=== PATIENT | female | born 1940 | race Caucasian/White ===

== ENCOUNTER 2016-09-15 16:40 | Inpatient (IN) | payer MEDICARE, OTHER ==
[~2016-09-15] VITALS: Ht 162.6 cm; Wt 58.0 kg
[2016-09-15 16:48] VITALS: BP 159/66; PULSE 68; RESP 16; O2SAT 100
--- NOTE | 2016-09-15 16:56 | ED.REPORT ---
HPI-Abd Pain F 40 and Over Date of Service September 15, 2016 ED Provider: Dr. Chan 76 y/o female with a hx of ulcerative colitis presents to the ED via EMS complaining of right quadrant abdominal pain, onset two weeks ago. She rates the pain 9.5/10 in severity. The pt reports she experienced bloody diarrhea and vomiting two weeks ago which resolved temporarily. The sx returned last week at which point she took Prednisone, which resolved all her sx. Today, the abdominal pain returned. She also had mild diarrhea and one episode of vomiting , after she ate a piece of toast today. She states her last normal BM was 4 days ago.She also reports chills and shaking but denies fever. Her sx are similar to the sx she experienced when she had colitis but reports that unlike today, her abdominal pain used to improve with a heating pad or lying down. The pt denies taking any Prednisone today. Nursing Notes Stated Complaint: ABD PAIN Chief Complaint: Female Abdominal Pain Nursing Notes Reviewed: Yes (Pollen - Social Platform, Win Win Slots not reconciled) Allergies: Coded Allergies: Sulfa (Sulfonamide Antibiotics) (Verified Allergy, Mild, nauesa, 09/15/16) Penicillins (Verified Allergy, Unknown, not sure, 09/15/16) General Time Seen by MD: 16:55 Chief Complaint Abdominal pain Hx Obtained From: Patient Arrived By: Helicopter Sudden in Onset?: No Onset Occurred: More than a week ago... 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 Neurologic: Reports: Shaking Physical Exam Vital Signs Vital Signs (First) Date Time Temp Pulse Resp B/P Pulse Ox O2 Delivery O2 Flow Rate FiO2 09/15/16 16:48 37.1 68 16 159/66 100 Room Air Initial VS: Reviewed, Unavailable (none on chart, ordered) Head / Eyes: Atraumatic, Normocephalic, PERRL Neck: Supple, Non-tender, Full range of motion Extremities: Vascular intact, Neuro intact, No swelling, No tenderness Skin: Warm, Dry, No cyanosis Neurologic: Alert, Oriented, Nonfocal General/Constitutional: Awake, Alert, Well appearing, Cooperative Respiratory / Chest: Atraumatic, Breath sounds NL, Breath sounds = bilat, No respiratory distress, No rales, No rhonchi, No wheezing Cardiovascular: Heart rate NL, Regular rhythm, Heart sounds NL, No gallop, No murmurs Abdomen: Atraumatic, Soft, Non-tender, No guarding, No rebound Back: Atraumatic, Full range of motion Interpretation & Diagnostics Lab Results Interpretation Result Diagram: 09/15/16 1700 Test 09/15/16 17:00 White Blood Count 12.3th/mm3 (3.8-10.1) Red Blood Count 4.84mil/mm3 (3.90-5.20) Hemoglobin 11.5g/dL (12.0-15.6) Hematocrit 35.1% (35.0-46.0) Mean Corpuscular Volume 72.5fL (81-100) Mean Corpuscular Hemoglobin 23.8pg (27.0-35.0) Mean Corpuscular Hemoglobin Concent 32.8% (32.0-37.0) Red Cell Distribution Width 16.6% (12.3-15.4) Platelet Count 450bil/L (150-400) Neutrophils (%) (Auto) 75.7% (40-74) Lymphocytes (%) (Auto) 7.2% (14-46) Monocytes (%) (Auto) 12.6% (4-12) Eosinophils (%) (Auto) 0.6% (0-5) Basophils (%) (Auto) 0.2% (0-3) Lab Results Interpretation: CBC positive leukocytosis Other labs pending ECG Interpretation ECG Interpretation: Normal sinus rhythm a rate of 62, borderline left ventricular hypertrophy-no prior EKGs available for comparison. No acute ischemic changes identified. Time: 17:44 Interpreted by: ED physician Re-Eval/Medical Decision Med Decision/Clinical Course This is a 76-year-old female airlifted from the [place] on a complaint of abdominal pain, and diarrhea. Patient reports that 5-6 years ago she was admitted to [facility] and diagnosed with ulcerative colitis. Also over the past 2 weeks that she has had pain, intermittent bleeding, and saw her primary care physician Dr. Chan and started on a prednisone course on Tuesday. Reports the bleeding of the diarrhea improved, but she continued to have some pain. Then today symptoms got worse and she had worsening pain, then developed nausea vomiting-and with his worsening airlift was contacted and she was flown here. A significant and severe pain. She reports a vague sense of chills, but is not certain about fever. On exam she does not appear acutely toxic or ill. She feels her mild discomfort. Her abdomen is soft and not particular tender-but again the patient 76 non-steroids, getting her abdominal exam. He denies recent antibiotic exposure history. She reports she is generally healthy and the only other medicine she takes is when necessary ibuprofen for some chronic abdominal pain. Plan workup is being pursued. Labs are being obtained, given the severity of the abdominal pain CT imaging is being obtained-and radiology as indicated they would like to receive oral contrast. I have also attempted to request records from [facility] from years ago from the last colonoscopy and GI evaluation she has had. Patient is being turned over to the oncoming provider change of shift. At this point the most likely diagnosis does remain a variant of colitis-to whether or not it is infectious, inflammatory of an ischemic remains a bit unclear. As indicated the workup is underway. Source of Hx: Old records (none in EMR), EMS Counseled Regarding: Diagnosis, Lab results Discharge & Departure Shift Change Sign-Out Patient Care Transferred: Yes Discussed Complaint(s): Yes Laboratory Evaluation: Ordered, not yet done Imaging Studies: Ordered, not yet done Primary Impression: Colitis Discharge Condition All VS Reviewed: Yes Care Transferred to: Dr. Peace Care Transferred at: 18:00 Scribe Attestation Portions of this note were transcribed by Jermaine Lux. I, , personally performed the history, physical exam and medical decision-making;I reviewed and confirmed the accuracy of the information in the transcribed note. Signed by Deven García. 09/15/16 1737 Wil Chan MD September 15, 2016 16:56 Jermaine Lux September 15, 2016 17:04
[2016-09-15] MEDS ORDERED: 0.9% Sodium Chloride 1,000 ML IV ONE (17:08)
[2016-09-15] MEDS ORDERED: HYDROmorphone 0.5 mg/0.5 mL iSecure Syringe IVPUSH PRN (17:10)
[2016-09-15] MEDS ORDERED: Ondansetron 2 mg/mL 2 mL Inj IVPUSH ONE (17:10)
[2016-09-15] MEDS: HYDROmorphone 1 mg/mL Inj IVPUSH PRN ×3 (17:30→21:52)
[2016-09-15 17:35] LABS: BASOPHILS % (AUTO) 0.2 % (0-3)
[2016-09-15 17:37] LABS: EOSINOPHILS % (AUTO) 0.6 % (0-5); MONOCYTES % (AUTO) 12.6 % (4-12); Mean Corpuscular Hemoglobin 23.8 pg (27.0-35.0); Mean Corpuscular Volume 72.5 fL (81-100); NEUTROPHILS % (AUTO) 75.7 % (40-74); Platelet Count 450 bil/L (150-400)
[2016-09-15] MEDS ORDERED: Iohexol 300 mg/mL 30 mL Inj PO ONE (17:45)
[2016-09-15 18:00] LABS: TROPONIN T < 0.010 ug/L (0.0-0.011)
[2016-09-15] MEDS ORDERED: ProchlorPERazine 5 mg/mL 2 mL Inj IVPUSH ONE (18:05)
[2016-09-15 18:07] LABS: Lipase 29 U/L (13-60)
[2016-09-15 18:08] LABS: APPEARANCE,URINE CLEAR (CLEAR,HAZY); COLOR,URINE STRAW (YELLOW); OCCULT BLOOD,URINE TRACE (NEGATIVE); UROBILINOGEN,URINE NORMAL (NORMAL)
[2016-09-15 19:30] VITALS: BP 129/57; PULSE 66; RESP 13; O2SAT 97
--- NOTE | 2016-09-15 19:44 | DRSVH ---
PROCEDURE: CT ABDOMEN AND PELVIS WITH CONTRAST ([id number]) INDICATIONS: Abd pain, ho colitis TECHNIQUE: After the administration of oral and intravenous contrast, 5 mm thick sections acquired from the diap hragms to the symphysis. 5 mm thick coronal and sagittal reformats were performed. For radiation do se reduction, the following was used: automated exposure control, adjustment of mA and/or kV accordi ng to patient size. COMPARISON: None. FINDINGS: Image quality: Excellent. ABDOMEN: Lung bases: Lung bases are clear. Heart size is normal. Solid organs: Benign left lobe of the liver hepatic cysts. Otherwise the liver is normal. The gallbla dder, pancreas, spleen, adrenal glands and left kidney are normal. There is a 14 x 10 mm proximal rig ht ureteral calculus causing right hydronephrosis and ureterectasis. Several smaller nonobstructing r ight-sided renal calculi. Benign right renal cyst.. Peritoneum and bowel: Stomach, small bowel, and colon loops are normal in caliber and wall thickness . No free fluid or air. Nodes and vessels: No retroperitoneal or mesenteric adenopathy. Aorta and inferior vena cava are no rmal in caliber. Miscellaneous: No ventral hernias. PELVIS: Genitourinary: Bladder wall thickness is normal. Miscellaneous: No inguinal hernias or adenopathy. Bones: Osteopenia. Advanced degenerative changes in both hips. Right hip effusion. IMPRESSION: 1. Obstructing 14 x 10 mm proximal right ureteral calculus with right-sided hydronephrosis. Several s maller nonobstructing right renal calculi are also present. 2. Severe bilateral hip degenerative change. Right hip effusion. Dictated by: Tristin Fiore M.D. on 09/15/2016 at 19:31 Approved by: Tristin Fiore M.D. on 09/15/2016 at 19:37
[2016-09-15] MEDS ORDERED: IBUP200C PO (21:08)
[2016-09-15] MEDS ORDERED: Alum-Mag Hydrox-Simeth 30 mL Suspension PO PRN (21:30)
[2016-09-15] MEDS ORDERED: Polyethylene Glycol (PEG) 17 Gm Powder PO PRN (21:30)
[2016-09-15] MEDS ORDERED: Ondansetron 2 mg/mL 2 mL Inj IVPUSH PRN (21:30)
[2016-09-15 21:36] VITALS: BP 109/46; PULSE 56; RESP 14; O2SAT 95
[2016-09-15] MEDS ORDERED: KCl 40 mEq/D5W 500 mL 40 MEQ in IV Premix 1 EACH IV ONE (22:00)
[2016-09-15 22:01] VITALS: BP 130/74; PULSE 79; RESP 16; O2SAT 97
[2016-09-15] MEDS: 0.9% Sodium Chloride 1,000 ML IV SCH (22:38)
--- NOTE | 2016-09-15 22:46 | PCM.HPMED ---
Subjective Date of Service September 15, 2016 Primary Provider: Admitting Physician: Primary Care Physician: Lio Chan MD Attending Physician: Admit Status: From the Emergency Department Chief Complaint: Abdominal pain History of Present Illness: 76 y/o female with a hx of ulcerative colitis presents to the ED via EMS ( helicopter from [place]) complaining of right quadrant abdominal pain, onset two weeks ago. She rates the pain 9.5/10 in severity. The pt reports she experienced bloody diarrhea and vomiting two weeks ago which resolved temporarily. The sx returned last week at which point she started taking Prednisone, which resolved all her sx. Today, the abdominal pain returned. Patient states the pain is deep on the right side between her abdomen and back. Patient reports of frequent bowel movements with the past 3, 4 days being constipated. Denies any diarrhea or blood in her stools. One episode of vomiting, after she ate a piece of toast today. She also reports chills with shakes, but denies fever. Patient reports her old fluoride of colitis pain is usually improved by heating pad or lying down, but this new onset of abdominal pain has been different. In the ED vitals temperature 37.1 pulse 68 respiratory 16 blood pressure 159/66 pulse ox 100% on room air. Labs significant for WBC 12.3 with 75.7% neutrophils. Patient was found to have right hydronephrosis confirmed by CT abd showed "1. Obstructing 14 x 10 mm proximal right ureteral calculus with right-sided hydronephrosis. Several smaller nonobstructing right renal calculi are also present. 2. Severe bilateral hip degenerative change. Right hip effusion." Dr. Silva of neurology was consulted, Dr. Silva to see patient in a.m. Review of Systems: Constitutional: Endorses chills denies fever GI: RUQ Abdominal pain, Diarrhea (Bloody, resolved after prednisone), Nausea, Vomiting A comprehensive review of systems has been conducted as above with the patient and found to be negative except what is mentioned in the HPI. 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 requiring some sort of neurosurgery History of scoliosis Surgical History Right Thumb Facial surgery (for traumatic injury) Patient reports last colonoscopy 5-6 years ago at [facility] were ulcerative colitis diagnosis was allegedly made (reported 08/2016) Reports: Appendectomy Family History Father with heart condition Mother of bowel perforation in her 80s Social History Hx Alcohol Use: Yes ("very seldom") Hx Substance Use: No Hx Tobacco Use: No Smoking Status: Never Smoker Living Arrangement: Alone (on [facility]) Exam Vital Signs Vital Sign - Last Date Time Temp Pulse Resp B/P Pulse Ox O2 Delivery O2 Flow Rate FiO2 09/15/16 19:30 66 13 129/57 97 Room Air 09/15/16 16:48 37.1 Exam GEN: Awake, Alert, no acute distress, Cooperative HEENT: Atraumatic, Normocephalic, PERRL, EOMI, moist mucous membranes Neck: Supple, Non-tender, Full range of motion CV: Heart rate NL, Regular rhythm, Heart sounds NL, No gallop, No murmurs, radial and dorsal pedis pulses normal Resp: CTAB with Breath sounds NL, Breath sounds = bilat, No respiratory distress, No rales, No rhonchi, No wheezing Abdomen: Atraumatic, Soft, Non-tender, No guarding, No rebound, no organomegaly Back: Atraumatic, Full range of motion, CVA tenderness on right Extremities: Vascular intact, Neuro intact, No swelling, No tenderness Skin: Warm, Dry, No cyanosis Neurologic: Alert, Oriented, Nonfocal Lab and Diagnostics Result Diagram: 09/15/16169909/15/161699 X-Rays, CTs and MRIs Date of Service: 09/15/161707 PROCEDURE: CT ABDOMEN AND PELVIS WITH CONTRAST ([id number]) INDICATIONS: Abd pain, ho colitis IMPRESSION: 1. Obstructing 14 x 10 mm proximal right ureteral calculus with right-sided hydronephrosis. Several smaller nonobstructing right renal calculi are also present. 2. Severe bilateral hip degenerative change. Right hip effusion. Dictated by: Tristin Fiore M.D. on 09/15/2016 at 19:31 Approved by: Tristin Fiore M.D. on 09/15/2016 at 19:37 Assessment & Plan Patient is a 76 y/o female with a hx of ulcerative colitis presents to the ED via EMS complaining of RUQ abdominal pain, onset two weeks ago. Symptoms of bloody diarrhea and vomiting were temporarily resolved with prednisone. Abdominal pain returned today, with associated symptoms of one episode of vomiting. Patient was found to have right hydronephrosis confirmed by CT abdomen. Right hydronephrosis due to right ureteral calculus, present on admission. Acute - NPO after midnight for possible procedure tomorrow - IV fluids continued - No antibiotics needed tonight but may be indicated prior to procedure tomorrow , Urology to decide - Dr. Silva of urology to see patient in a.m. with plans for stenting Abdominal pain, present on admission. Acute. Resolved. - Patient's abdominal pain most likely due to hydronephrosis, since patient's ulcerative colitis significantly improved upon taking prednisone with no further episodes of bloody diarrhea Ulcerative colitis, present on admission. Stable - Patient was on mesalamine that has recently been taken herself off of it, being very careful with her diet, taking ibuprofen for flares - Patient's abdominal pain most likely due to hydronephrosis, since there has been no blood with her stools, and patient reporting of different quality of pain untouched by usual comforting remedies Hx of TBI Hx of kidney stones Acetaminophen-fever/headache/mild/moderate pain Antiemetics, as needed Bowel regimen, as needed. Patient status: Patient was admitted under inpatient status with expected length of stay greater than two midnights due to severity of presenting symptoms , risk of adverse event, and complexity of treatment plan. GI Prophylaxis: Not indicated VTE Prophylaxis: Sub-Q Heparin (Unfractionated) Resuscitation Status: DNR/DNI:Do Not Resuscitate/Intubate Attending Statement The patient was seen and examined together with Dr. Colby on 09/14 and I agree with the history, exam and plan as outlined in the note above. Corey Colby DO September 15, 2016 21:30 Isauro Ding MD September 16, 2016 00:49
[2016-09-16] VITALS (11 sets, daily range): BP systolic 102–142; BP diastolic 57–78; PULSE 66–86; RESP 12–18; O2SAT 94–98
[2016-09-16] MEDS: Heparin 5,000 Unit/mL Inj SUBQ SCH ×3 (00:32→16:54)
[2016-09-16] MEDS: HYDROmorphone 0.5 mg/0.5 mL iSecure Syringe IVPUSH PRN ×2 (00:37→03:38)
[2016-09-16 06:55] LABS: BASOPHILS % (AUTO) 0.3 % (0-3); EOSINOPHILS % (AUTO) 0.4 % (0-5); MONOCYTES % (AUTO) 14.1 % (4-12); Mean Corpuscular Hemoglobin 23.8 pg (27.0-35.0); Mean Corpuscular Volume 73.8 fL (81-100); Platelet Count 394 bil/L (150-400)
--- NOTE | 2016-09-16 09:12 | PCM.HPANE ---
Patient Data Surgeon Admitting Provider:Isauro Ding MD Attending Provider:Isauro Ding MD Primary Care Physician:Lio Chan MD Other Provider: Reason for Visit Obst,Uropathy W/Stone,Ulcerative Colits Ht/WT & BMI Height (Feet): 5 Height (Inches): 4.00 Weight (Kilograms): 58.000 Body Mass Index 21.83 Allergies Coded Allergies: Sulfa (Sulfonamide Antibiotics) (Verified Allergy, Mild, nauesa, 09/15/16) Penicillins (Verified Allergy, Unknown, not sure, 09/15/16) Past Anesthesia History Anesthesia History: Denies:: Abnormal Airway, Anesthesia Reactions, Difficult Intubation, Fam Anesthesia Reaction, Fam Malignant Hypertherm, Malignant Hyperthermia Diabetes History Hx Diabetes?: No MRSA MRSA: No Medications Reported Medications Ibuprofen 200 Mg Capsule3-4 Capsule PO TID PRN For Pain 09/15/16 History History of ENT Problems?: Yes HEENT History: Denies:: Abnormal Airway Cataracts Difficult Intubation Dysphagia Glaucoma Hearing Problem Sinus Problem TMJ Denture Type: None Teeth Condition: Within Normal Limits Other HEENT Pertinent History: hx of facial surgery secondary to traumatic injury Hx of Heart Problems?: No Cardiovascular History: Denies:: AICD Abdominal Aortic Aneurism Atrial Fibrillation Cardiac Surgery Chest Pain Congestive Heart Failure Coronary Artery Disease Edema Heart Murmur Hypertension Irregular Heartbeat Pacemaker Peripheral Vascular Rheumatic Fever Thrombophlebitis Valvular Heart Disease Hx of Respiratory Problem?: No Respiratory History: Denies:: Asthma COPD Chest Surgery Cough Dyspnea Emphysema Hemoptysis Oxygen Administration Pneumonia Pulmonary Embolism Tuberculosis Use of C-PAP Machine Use of Inhalers / NEBS Hx Neurologic Problems?: No Hx of GI Problems?: Yes Other GI Pertinent History: ulcerative colitis s/p appy Hx of Problems?: Yes Genitourinary History: Positive for:: Kidney Stones (current, see below) Other Pertinent History: obstructing rt.ureteral calculus with rt-sided hydronephrosis Female Hx: Denies:: Currently Endometriosis Pelvic Inflammatory Problems with Breasts? Hx Musculoskeletal Problems?: Yes Musculoskeletal History: Positive for:: Back Injury (spinal stenosis, hx scoliosis) Musculoskeletal Trauma (traumatic brain injury and cervical injury from a fall in 1991) Denies:: Joint Replacement Hx of Psycho/Social Problems?: No Hx Surgeries?: Yes (neurosurgery, rt.thumb, facial sry, appendectomy, colonoscopy) Hx Any Other Health Problems?: Yes Other History: Positive for:: Hospitalization Denies:: Cancer Thyroid Disease History Blood Transfusions: Positive for:: Accept Blood Products? Blood Transfusions (some "blood product") Hx Diabetes: No Hx Alcohol Use: Yes ("very seldom")Hx Substance Use: No Smoking Status: Never Smoker Have You Smoked inLast 12 mo: YesApprox How Many Cigarettes/day: 5-6 cig/day Stop/Bang Treated for Sleep Apnea?: No Do You Have a CPAP Machine?: No S-Snoring: Do You Snore Loudly: No T-Tired: feel tired, fatigued: No O-Obsered: Observed not breath: No P-Blood Pressure: treated: No B- Body Mass Index > 35 kg/m2: No A- Age over 50: Yes N- Neck Large Circumference: No G- Gender Male: No SMITH Total Score: 0 Risk Assessment Category Category 1A: Patient has history of documented sleep apnea, and HAS NOT received any narcotic, sedative or anesthesia administration during this stay. Category 1B: Patient has history of documented sleep apnea, and HAS received any narcotic , sedative or anesthesia administration during this stay Category 2: Patient has SUSPECTED Obstructive Sleep Apnea, and HAS received any narcotic , sedative or anesthesia administration during this stay. Category 3: Patient has SUSPECTED Obstructive Sleep Apnea and HAS NOT received narcotic, sedative or anesthesia administration during this stay. Category 4: Outpatient in Procedural Areas with known sleep apnea or who screen positive for High Risk via the STOP/BANG questionnaire. Exam Exam Vital Signs Vital Signs Date Time Temp Pulse Resp B/P Pulse Ox O2 Delivery O2 Flow Rate FiO2 09/16/16 05:15 36.4 68 16 142/68 97 Room Air 09/16/16 01:16 36.8 82 16 126/78 96 Room Air General Appearance: Alert, Oriented X3, Cooperative HEENT/AIRWAY: MP 2, Neck Movement (from), Mouth Opening (wnl) Lungs: Clear to Auscultation Heart: Exam Unremarkable Meds/Labs/Diagnostics Admission Meds Current Medications Sodium Chloride (Normal Saline) 1,000 ml @ 0 mls/hr Q0M ONCE IV Last administered on 09/15/16t 17:52; Start 09/15/16 at 17:08; Stop 09/15/16 at 17:10 ; Status DC Ondansetron HCl (Zofran Inj) 8 mg ONCE ONCE IVPUSH Last administered on 17:25; Start 09/15/16 at 17:10; Stop 09/15/16 at 17:11; Status DC Iohexol (Omnipaque-300 Inj) 9,000 mg ONCE ONCE PO Last administered on 18:08; Start 09/15/16 at 17:45; Stop 09/15/16 at 17:47; Status DC Heparin Sodium (Porcine) 5000 unit 5,000 unit Q8 SUBQ Last administered on 09/16 00:32; Start 09/16/16 at 00:30 Potassium Chloride In D5W 40 meq/Premix 500 ml @ 125 mls/hr Q4H ONCE IV Last administered on 09/15/16 22:37; Start 09/15/16 at 22:00; Stop 09/16/16 at 01:59 ; Status DC Sodium Chloride (Normal Saline) 1,000 ml @ 100 mls/hr Q10H IV Last administered on 09/15/16 22:38; Start 09/15/16 at 22:30 Labs Test 09/15/16 17:00 09/15/16 17:49 09/16/16 06:37 Lactic Acid Level 0.9mmol/L (0.4-2.0) Magnesium Level 2.0mg/dL (1.6-2.6) Total Bilirubin 0.4mg/dL (0.0-1.2) Aspartate Amino Transf (AST/SGOT) 21U/L (0-50) Alanine Aminotransferase (ALT/SGPT) 28U/L (0-32) Alkaline Phosphatase 112U/L (25-165) Troponin T < 0.010ug/L (0.0-0.011) Total Protein 6.4g/dL (6.4-8.4) Albumin 3.3g/dL (3.4-5.0) Lipase 29U/L (13-60) Urine Color Straw (YELLOW) Urine Appearance Clear (CLEAR,HAZY) Urine pH 7.0 (5.0-8.0) Urine Specific [place] 1.010 (1.003-1.035) Urine Protein Negativemg/dL (NEG,TRACE) Urine Glucose (UA) Negativemg/dL (NEGATIVE) Urine Ketones Negativemg/dL (NEGATIVE) Urine Occult Blood Trace (NEGATIVE) Urine Nitrite Negative (NEGATIVE) Urine Bilirubin Negative (NEGATIVE) Urine Urobilinogen Normalmg/dL (NORMAL) Urine Leukocyte Esterase Moderate (NEGATIVE) Urine RBC 0-2/hpf (0-2) Urine WBC 6-10/hpf (0-5) Urine Epithelial Cells Occasional/hpf (NONE-MOD) Urine Crystals None seen (NONE SEEN) Urine Bacteria None/hpf (NONE-FEW) Urine Hyaline Casts None/lpf (NONE) Urine Granular Casts None seen (NONE SEEN) Urine Waxy Casts None seen (NONE SEEN) Urine Red Blood Cell Casts None seen (NONE SEEN) Urine White Blood Cell Casts None seen (NONE SEEN) Urine Mucus None seen (None Seen) Urine Trichomonas None seen (NONE SEEN) Urine Yeast None (NONE SEEN) Urinalysis Comment None Urine Culture Reflexed Indicated White Blood Count 7.9th/mm3 (3.8-10.1) Red Blood Count 4.50mil/mm3 (3.90-5.20) Hemoglobin 10.7g/dL (12.0-15.6) Hematocrit 33.2% (35.0-46.0) Mean Corpuscular Volume 73.8fL (81-100) Mean Corpuscular Hemoglobin 23.8pg (27.0-35.0) Mean Corpuscular Hemoglobin Concent 32.2% (32.0-37.0) Red Cell Distribution Width 16.9% (12.3-15.4) Platelet Count 394bil/L (150-400) Neutrophils (%) (Auto) 73.0% (40-74) Lymphocytes (%) (Auto) 9.8% (14-46) Monocytes (%) (Auto) 14.1% (4-12) Eosinophils (%) (Auto) 0.4% (0-5) Basophils (%) (Auto) 0.3% (0-3) Sodium Level 136mEq/L (134-144) Potassium Level 4.2mEq/L (3.5-5.2) Chloride Level 100mEq/L (97-108) Carbon Dioxide Level 24mmol/L (18-29) Blood Urea Nitrogen 21mg/dL (8-27) Creatinine 1.13mg/dL (0.57-1.00) Estimat Glomerular Filtration Rate 67mL/min (>59) Glucose Level 80mg/dL (60-99) Calcium Level 8.2mg/dL (8.5-10.1) Plan Impression Patient chart reviewed, patient interviewed and anesthestic plan with risks, benefits, and alternatives discussed, and informed consent obtained. ASA Physical Status: ASA2 Mod Systemic Disease Anesthetic Plan: GA Bene/Risks/Altern/Consents: Yes HP Complete Prior to Induction: Yes Robert King MD September 16, 2016 09:12
[2016-09-16] MEDS: 0.9% Sodium Chloride 1,000 ML IV SCH ×2 (09:35→17:37)
[2016-09-16] MEDS ORDERED: Lactated Ringer's 1,000 ML IV ONE (10:02)
[2016-09-16] MEDS ORDERED: levoFLOXacin 500 mg/100 mL D5W Premix IV ONE (10:28)
[2016-09-16] MEDS ORDERED: Lactated Ringer's 1,000 ML IV SCH (10:49)
[2016-09-16] MEDS ORDERED: Lactated Ringer's 500 ML IV PRN (10:49)
[2016-09-16] MEDS ORDERED: EPHEDrine Sulfate 50 mg/mL Inj IVPUSH PRN (10:50)
[2016-09-16] MEDS ORDERED: HYDROmorphone 1 mg/mL Inj IVPUSH PRN (10:50)
[2016-09-16] MEDS ORDERED: hydrALAZINE 20 mg/mL Inj IVPUSH PRN (10:50)
[2016-09-16] MEDS ORDERED: Phenylephrine 10,000 mCg/mL Inj IVPUSH PRN (10:50)
[2016-09-16] MEDS ORDERED: Labetalol 5 mg/mL 4 mL Inj IV PRN (10:50)
[2016-09-16] MEDS ORDERED: Ondansetron 2 mg/mL 2 mL Inj IVPUSH PRN (10:50)
[2016-09-16] MEDS ORDERED: Dexamethasone 4 mg/mL Inj IVPUSH PRN (10:50)
[2016-09-16] MEDS ORDERED: fentaNYL-PF 50 mCg/mL 2 mL Inj IVPUSH PRN (10:50)
[2016-09-16] MEDS ORDERED: Atropine 0.4 mg/mL Inj IVPUSH PRN (10:50)
--- NOTE | 2016-09-16 11:44 | PCM.ANEP1 ---
Post Anesthesia PACU Phase 1 Assessment Vital Signs Vital Signs Date Time Temp Pulse Resp B/P Pulse Ox O2 Delivery O2 Flow Rate FiO2 09/16/16 11:25 74 15 128/61 95 Room Air 09/16/16 11:20 76 14 136/57 96 Room Air 09/16/16 11:15 81 12 132/60 94 Room Air 09/16/16 11:10 81 16 135/64 95 Room Air 09/16/16 11:05 36.7 86 16 129/61 94 Room Air 09/16/16 09:25 37.1 66 16 124/67 96 09/16/16 05:15 36.4 68 16 142/68 97 Room Air Anesthetic Administered: GA Level of Alertness: Awake, talking NEWMAN's with Equal Strength: Yes Pain: No Nausea or Vomiting: No CV Function and Hydration: Yes Airway Device: Oxygen Delivery: Room Air Lungs: Normal Air Movement PACU Phase 2 Assessment Complications: No Follow up Care: No Patient Instructions Provided: N/A Robert King MD September 16, 2016 11:43
--- NOTE | 2016-09-16 11:48 | DRSVH ---
PROCEDURE: X-RAY RETROGRADE UROGRAPHY INDICATIONS: RIGHT KIDNEY STONE TECHNIQUE: 5 intra-operative images acquired by the Urology service. COMPARISON: [facility], CT, CT ABD PELVIS W CON, 09/15/2016, 19:06. FINDINGS: Moderate right hydronephrosis is present and there are multiple intraluminal filling defec ts present largest measuring roughly 1.5 cm corresponding to the stones seen on recent CT KUB. Visua lized portions of the ureter demonstrate normal course and caliber. Ureteral stent was placed. IMPRESSION: Moderate right hydronephrosis with multiple intraluminal filling defects related to stone a seen on recent CT. Dictated by: Dale MORATAYA Interpreted: Anh Nguyen MD on 09/16/2016 at 11:47 Transcribed by: JAD on 09/16/2016 at 11:48 Approved by: Anh Nguyen M.D. on 09/17/2016 at 9:19
[2016-09-16] MEDS ORDERED: fentaNYL-PF 50 mCg/mL 2 mL Inj ONE (12:44)
[2016-09-16] MEDS ORDERED: Propofol 10,000 mCg/mL 20 mL Inj ONE (12:44)
[2016-09-16] MEDS ORDERED: EPHEDrine/NS 5 mg/mL 5 mL Syringe ONE (12:44)
--- NOTE | 2016-09-16 13:07 | CONS ---
[address] [address] CONSULTATION REPORT PATIENT: CLARITA CHEATHAM : 1940 MR#: [id number] ADMIT: 09/15/2016 JOB ID: [id number] DATE OF SERVICE: HISTORY OF PRESENT ILLNESS: This 76-year-old woman was admitted by air ambulance from [facility] with right quadrant abdominal pain associated with bloody diarrhea, nausea and vomiting. She has a past history of ulcerative colitis and started taking low-dose prednisone approximately a week prior to admission. A CT scan was performed which showed a large, 14 x 10 mm calculus at the right UPJ with moderate right hydronephrosis and delay in function. PAST MEDICAL, SOCIAL, FAMILY HISTORY: See admission note. PHYSICAL EXAMINATION: A reasonably fit 76-year-old woman in no acute distress at this time. She is afebrile. Vital signs are stable. Head and neck clear. Chest is clear. Abdomen is soft. There is some right-sided tenderness. It is uncertain whether this is due to her ulcerative colitis or renal colic. She definitely has right CVA tenderness. IMPRESSION AND PLAN: A large, obstructing calculus on the right side. A CT scan shows a relatively low Hounsfield number, so she is a good candidate for extracorporeal shock wave lithotripsy. At this point, I would recommend cystoscopy and stent placement, which will be carried out later today.
--- NOTE | 2016-09-16 14:28 | PCM.PNMED ---
Subjective Date of Service September 16, 2016 Subjective Patient states she is already feeling better. She has been urinating and has no pain with urination. c/o leg pain that is chronic due to arthritis. Tolerated clears. Wants to advance diet. Exam Vital Signs Vital Sign - Last Date Time Temp Pulse Resp B/P Pulse Ox O2 Delivery O2 Flow Rate FiO2 09/16/16 05:15 36.4 68 16 142/68 97 Room Air Intake and Output 09/15/16 09/15/16 09/16/16 Cumulative From/Thru 15:00 23:00 07:00 09/15/16 16:48 - 09/16/16 06:53 Intake Total 862 ml 862 ml Output Total 400 ml 700 ml 1100 ml Balance -400 ml 162 ml -238 ml Intake Oral 0 ml 0 ml IV Total 862 ml 862 ml Output Urine Total 400 ml 700 ml 1100 ml Exam Gen.: No acute distress sitting in bed HEENT: Normocephalic, atraumatic Heart: Regular rate and rhythm no S3-S4 sounds Lungs clear to auscultation no crackles or wheezes Abdomen nontender nondistended soft Extremities: Negative for edema Neuro no focal deficits Psychiatric negative for anxiety IVs and Medications IV Fluids Normal saline 100 mL/h Medications Reviewed: Medications were reviewed in detail Lab and Diagnostics Laboratory Tests Test 09/15/16 17:00 09/15/16 17:49 09/16/16 06:37 White Blood Count 12.3th/mm3 (3.8-10.1) 7.9th/mm3 (3.8-10.1) Red Blood Count 4.84mil/mm3 (3.90-5.20) 4.50mil/mm3 (3.90-5.20) Hemoglobin 11.5g/dL (12.0-15.6) 10.7g/dL (12.0-15.6) Hematocrit 35.1% (35.0-46.0) 33.2% (35.0-46.0) Mean Corpuscular Volume 72.5fL (81-100) 73.8fL (81-100) Mean Corpuscular Hemoglobin 23.8pg (27.0-35.0) 23.8pg (27.0-35.0) Mean Corpuscular Hemoglobin Concent 32.8% (32.0-37.0) 32.2% (32.0-37.0) Red Cell Distribution Width 16.6% (12.3-15.4) 16.9% (12.3-15.4) Platelet Count 450bil/L (150-400) 394bil/L (150-400) Neutrophils (%) (Auto) 75.7% (40-74) 73.0% (40-74) Lymphocytes (%) (Auto) 7.2% (14-46) 9.8% (14-46) Monocytes (%) (Auto) 12.6% (4-12) 14.1% (4-12) Eosinophils (%) (Auto) 0.6% (0-5) 0.4% (0-5) Basophils (%) (Auto) 0.2% (0-3) 0.3% (0-3) Sodium Level 136mEq/L (134-144) 136mEq/L (134-144) Potassium Level 3.1mEq/L (3.5-5.2) 4.2mEq/L (3.5-5.2) Chloride Level 98mEq/L (97-108) 100mEq/L (97-108) Carbon Dioxide Level 23mmol/L (18-29) 24mmol/L (18-29) Blood Urea Nitrogen 25mg/dL (8-27) 21mg/dL (8-27) Creatinine 1.03mg/dL (0.57-1.00) 1.13mg/dL (0.57-1.00) Estimat Glomerular Filtration Rate 75mL/min (>59) 67mL/min (>59) Glucose Level 92mg/dL (60-99) 80mg/dL (60-99) Lactic Acid Level 0.9mmol/L (0.4-2.0) Calcium Level 8.4mg/dL (8.5-10.1) 8.2mg/dL (8.5-10.1) Magnesium Level 2.0mg/dL (1.6-2.6) Total Bilirubin 0.4mg/dL (0.0-1.2) Aspartate Amino Transf (AST/SGOT) 21U/L (0-50) Alanine Aminotransferase (ALT/SGPT) 28U/L (0-32) Alkaline Phosphatase 112U/L (25-165) Troponin T < 0.010ug/L (0.0-0.011) Total Protein 6.4g/dL (6.4-8.4) Albumin 3.3g/dL (3.4-5.0) Lipase 29U/L (13-60) Urine Color Straw (YELLOW) Urine Appearance Clear (CLEAR,HAZY) Urine pH 7.0 (5.0-8.0) Urine Specific [place] 1.010 (1.003-1.035) Urine Protein Negativemg/dL (NEG,TRACE) Urine Glucose (UA) Negativemg/dL (NEGATIVE) Urine Ketones Negativemg/dL (NEGATIVE) Urine Occult Blood Trace (NEGATIVE) Urine Nitrite Negative (NEGATIVE) Urine Bilirubin Negative (NEGATIVE) Urine Urobilinogen Normalmg/dL (NORMAL) Urine Leukocyte Esterase Moderate (NEGATIVE) Urine RBC 0-2/hpf (0-2) Urine WBC 6-10/hpf (0-5) Urine Epithelial Cells Occasional/hpf (NONE-MOD) Urine Crystals None seen (NONE SEEN) Urine Bacteria None/hpf (NONE-FEW) Urine Hyaline Casts None/lpf (NONE) Urine Granular Casts None seen (NONE SEEN) Urine Waxy Casts None seen (NONE SEEN) Urine Red Blood Cell Casts None seen (NONE SEEN) Urine White Blood Cell Casts None seen (NONE SEEN) Urine Mucus None seen (None Seen) Urine Trichomonas None seen (NONE SEEN) Urine Yeast None (NONE SEEN) Urinalysis Comment None Urine Culture Reflexed Indicated Microbiology 09/15/16 Blood Culture, Received Pending 09/15/16 Urine Culture - Preliminary, Resulted No growth to date Result Diagram: 09/16/16 0637 09/15/161699 X-Rays, CTs and MRIs Date of Service: 09/15/16 170 PROCEDURE: CT ABDOMEN AND PELVIS WITH CONTRAST (PNL-7102) INDICATIONS: Abd pain, ho colitis IMPRESSION: 1. Obstructing 14 x 10 mm proximal right ureteral calculus with right-sided hydronephrosis. Several smaller nonobstructing right renal calculi are also present. 2. Severe bilateral hip degenerative change. Right hip effusion. Dictated by: Tristin Fiore M.D. on 09/15/2016 at 19:31 Approved by: Tristin Fiore M.D. on 09/15/2016 at 19:37 Caution: Report not yet finalized and possibly incomplete! PROCEDURE: X-RAY RETROGRADE UROGRAPHY IMPRESSION: Moderate right hydronephrosis with multiple intraluminal filling defects related to stonea seen on recent CT. Dictated by: Dale MORATAYA Interpreted: Anh Nguyen MD on 09/16/2016 at 11: 47 Transcribed by: JAD on 09/16/2016 at 11:48 Assessment & Plan Patient is a 76 y/o female with a hx of ulcerative colitis presents to the ED via EMS complaining of RUQ abdominal pain, onset two weeks ago. Symptoms of bloody diarrhea and vomiting were temporarily resolved with prednisone. Abdominal pain returned today, with associated symptoms of one episode of vomiting. Patient was found to have right hydronephrosis confirmed by CT abdomen. Right hydronephrosis due to right ureteral calculus, present on admission. Acute - NPO after midnight for possible procedure tomorrow - IV fluids continued - No antibiotics needed tonight but may be indicated prior to procedure tomorrow , Urology to decide - The patient is status post stent placement by Dr. Silva, patient is urinating feeling better -- oxycodone for moderate pain, morphine for severe pain Abdominal pain, present on admission. Acute. Resolved. - Patient's abdominal pain most likely due to hydronephrosis, since patient's ulcerative colitis significantly improved upon taking prednisone with no further episodes of bloody diarrhea Ulcerative colitis, present on admission. Stable - Patient was on mesalamine that has recently been taken herself off of it, being very careful with her diet, taking ibuprofen for flares - Patient's abdominal pain most likely due to hydronephrosis, since there has been no blood with her stools, and patient reporting of different quality of pain untouched by usual comforting remedies Arthritis -She cannot take ibuprofen right now Tylenol 3 is ordered for mild pain, Continue morphine for surgical pain- Hx of TBI Hx of kidney stones Acetaminophen-fever/headache/mild/moderate pain Antiemetics, as needed Bowel regimen, as needed. Patient status: Patient was admitted under inpatient status with expected length of stay greater than two midnights due to severity of presenting symptoms , risk of adverse event, and complexity of treatment plan. Pain Evaluation: Adequate Pain Control GI Prophylaxis: Not indicated VTE Prophylaxis: Sub-Q Heparin (Unfractionated) Resuscitation Status: DNR/DNI:Do Not Resuscitate/Intubate Time spent 20 min Ale Manuel DO September 16, 2016 07:08
--- NOTE | 2016-09-16 16:13 | NUR ---
Social Work: Initial Assessment / Readiness for d/c Data: Pt is a 76 y/o female admitted for obst, uropathy wtih stone, ulcerative colitis. Pt's PCP is Dr Chan, pt's insurance is Medicare with [employer] supp. EMR reviewed. Readmit score is 1. TRAFFIC CONTROL SUPERVISOR met with pt at bedside, role explained. Pt states she lives on [address] alone. Pt has no hx of HH or SNF, pt drives, pt has no LTC or VA benefits. Pt is not a caregiver. No d/c planning needs at this time. TRAFFIC CONTROL SUPERVISOR will continue to follow if needs arise. Assessment: Pt who is independent at baseline. Plan: Pt will d/c home via POV with cousin when medically stable. Pt states her cousin is scheduling a flight for her to [place] and requested TRAFFIC CONTROL SUPERVISOR call her cousin once d/c is known. TRAFFIC CONTROL SUPERVISOR will continue to follow. JENNIFER Canchola Addendum: 09/16/16 at 1619 by LAUREANO TAYLOR SS Amended: Links added.
[2016-09-16] MEDS: Codeine-APAP 30-300 mg Tablet PO PRN ×2 (17:33→21:35)
[2016-09-17] MEDS: Heparin 5,000 Unit/mL Inj SUBQ SCH (00:30)
[2016-09-17] MEDS: 0.9% Sodium Chloride 1,000 ML IV SCH (03:13)
[2016-09-17 05:56] VITALS: BP 122/67; PULSE 76; RESP 20; O2SAT 97
--- NOTE | 2016-09-17 06:09 | NUR ---
Hematuria/Abdominal Pain P: Hematuria and urgency. Pt states abdominal pain and soreness 12/09 I: Hold 0030 dose of heparin per charge, to resume in the morning. Medicated pt with 5mg oxycodone as ordered. E: Pt continues to have moderately pink tinged urine. Pt. resting in bed, call light in reach.
[2016-09-17] MEDS: Codeine-APAP 30-300 mg Tablet PO PRN ×2 (07:54→14:53)
[2016-09-17] MEDS ORDERED: OXYC5TAB72 PO (09:19)
[2016-09-17 09:20] LABS: Mean Corpuscular Hemoglobin 24.1 pg (27.0-35.0); Mean Corpuscular Volume 74.4 fL (81-100)
--- NOTE | 2016-09-17 09:48 | PCM.PNMED ---
Subjective Date of Service September 17, 2016 Subjective Patient states she says not better. Yesterday she was concerned about being able to go home, today she says it does not necessarily because she was ready bur rather worried about going back to [facility]. c/o leg pain and back pain w /o ibuprofen. She has no dyspnea or cough. Slight hematuria overnight. Exam Vital Signs Vital Sign - Last Date Time Temp Pulse Resp B/P Pulse Ox O2 Delivery O2 Flow Rate FiO2 09/17/16 05:56 37.2 76 20 122/67 97 Room Air Intake and Output 09/16/16 09/16/16 09/17/16 Cumulative From/Thru 15:00 23:00 07:00 09/15/16 16:48 - 09/17/16 05:42 Intake Total 1031 ml 1322 ml 1201 ml 4416 ml Output Total 1350 ml 2450 ml Balance 1031 ml -28 ml 1201 ml 1966 ml Intake Oral 745 ml 745 ml IV Total 1031 ml 577 ml 1201 ml 3671 ml Output Urine Total 1350 ml 2450 ml Exam General: NAD, eating toast HEENT: NCAT Neck: JVD noted, Lungs: mild crackles, no increased WOB, no wheezing Abd: anterior RUQ and then r flank pain, moderate leg pain discussed injections by PC Legs: No edema Neuro: no focal deficits Psych: mildly anxious IVs and Medications IV Fluids Discontinued IVF Medications Reviewed: Medications were reviewed in detail Lab and Diagnostics Result Diagram: 09/16/16 0637 09/17/16 0805 X-Rays, CTs and MRIs Date of Service: 09/15/16 1708 PROCEDURE: CT ABDOMEN AND PELVIS WITH CONTRAST ([id number]) INDICATIONS: Abd pain, ho colitis IMPRESSION: 1. Obstructing 14 x 10 mm proximal right ureteral calculus with right-sided hydronephrosis. Several smaller nonobstructing right renal calculi are also present. 2. Severe bilateral hip degenerative change. Right hip effusion. Dictated by: Tristin Fiore M.D. on 09/15/2016 at 19:31 Approved by: Tristin Fiore M.D. on 09/15/2016 at 19:37 Caution: Report not yet finalized and possibly incomplete! PROCEDURE: X-RAY RETROGRADE UROGRAPHY IMPRESSION: Moderate right hydronephrosis with multiple intraluminal filling defects related to stonea seen on recent CT. Dictated by: Dale Maki RRA Interpreted: Anh Nguyen MD on 09/16/2016 at 11: 47 Transcribed by: JAD on 09/16/2016 at 11:48 Assessment & Plan Patient is a 76 y/o female with a hx of ulcerative colitis presents to the ED via EMS complaining of RUQ abdominal pain, onset two weeks ago. Symptoms of bloody diarrhea and vomiting were temporarily resolved with prednisone. Abdominal pain returned today, with associated symptoms of one episode of vomiting. Patient was found to have right hydronephrosis confirmed by CT abdomen. Right hydronephrosis due to right ureteral calculus, present on admission. Acute - s/p R ureteral stent placement - IV fluids discontinued - No antibiotics needed tonight but may be indicated prior to procedure tomorrow , Urology to decide - The patient is status post stent placement by Dr. Silva, patient is urinating feeling better: had slight hematuria last night, heparin was stopped. She says it is not a large bleed -- oxycodone for moderate pain, morphine for severe pain, tylenol 3 for mild pain -- It appears Dr. Silva is planning to do a lithotrypsy in 2 weeks, will f/u with him regarding d/c planning Abdominal pain, present on admission. Acute. much improved. - Patient's abdominal pain most likely due to hydronephrosis, since patient's ulcerative colitis significantly improved upon taking prednisone with no further episodes of bloody diarrhea Ulcerative colitis, present on admission. Stable - Patient was on mesalamine that has recently been taken herself off of it, being very careful with her diet, taking ibuprofen for flares - Patient's abdominal pain most likely due to hydronephrosis, since there has been no blood with her stools, and patient reporting of different quality of pain untouched by usual comforting remedies Arthritis -She cannot take ibuprofen right now Tylenol 3 is ordered for mild pain, Continue morphine for surgical pain- -- I counselled her on asking for joint injections and/or fluroscopy guided back injections. She understands and appreciates Hx of TBI Hx of kidney stones Acetaminophen-fever/headache/mild/moderate pain Antiemetics, as needed Bowel regimen, as needed. Patient status: Patient was admitted under inpatient status with expected length of stay greater than two midnights due to severity of presenting symptoms , risk of adverse event, and complexity of treatment plan. Likely d/c home with HH on 09/18. She says she can get a ride in time on 09/18 Pain Evaluation: Adequate Pain Control GI Prophylaxis: Not indicated VTE Prophylaxis: Sub-Q Heparin (Unfractionated) VTE Mechanical Devices: Intermittant Pneumatic CD Resuscitation Status: DNR/DNI:Do Not Resuscitate/Intubate Time spent 25 min Ale Manuel DO September 17, 2016 09:13
[2016-09-17 16:31] VITALS: BP 110/64; PULSE 87; RESP 18; O2SAT 98
[2016-09-17 20:50] VITALS: BP 121/59; PULSE 78; RESP 18; O2SAT 98
[2016-09-18 05:07] VITALS: BP 129/66; PULSE 84; RESP 18; O2SAT 99
--- NOTE | 2016-09-18 06:23 | OP ---
[address] [address] OPERATIVE REPORT PATIENT: CLARITA CHEATHAM : 1940 MR#: [id number] ADMIT: 09/15/2016 JOB ID: [id number] DATE OF SURGERY: 09/16/2016 PROCEDURE: Cystoscopy with right-sided retrograde pyelogram and right-sided double-J stent placement. SURGEON: Destiny Amos MD ANESTHESIA: General. PREOPERATIVE DIAGNOSIS(ES): Hospital admission with large ureteropelvic junction stone on the right. Also, abdominal pain related to flare of her inflammatory bowel disease managed by the medicine service. She was evaluated by Dr. Suzy Silva with Urology and set up for a double-J stent placement to temporize during her treatment for acute flare of her bowel disease with plans to treat the stone itself at a later date. POSTOPERATIVE DIAGNOSIS(ES): PROCEDURE IN DETAIL: After appropriate informed consent was obtained, the patient was brought to the operating room. She received IV antibiotics prior to onset of procedure. SCDs were placed. Adequate general anesthesia was induced. She was carefully placed in dorsal lithotomy position. All pressure points carefully padded. Rigid scope was introduced in patient's bladder which was surveyed and found to be grossly normal in appearance. The right ureteral orifice was identified and cannulated with an open-ended 6-Sammarinese catheter. Through this, we performed a retrograde pyelogram which revealed a very generously sized right ureter and a stone at the renal pelvis UPJ large. We advanced a hydrophilic tipped wire through the open-ended catheter up into good position in the renal pelvis and then removed the open-ended catheter and advanced a 6-Sammarinese x 24 cm double-J stent into good position fluoroscopically seen at the renal pelvis with a good curl visually, seeing good curl in the patient's bladder. The string was left off. Bladder was drained completely. She was awakened and taken in stable condition to the postanesthesia care unit.
--- NOTE | 2016-09-18 06:25 | NUR ---
Pain Patient reports right side pain 6-8. relieved by 5mg oxycodone every 4 hours. vitals stable. patient observed snoring. breathing nonlabored. appeared comfortable. patient educated that she needs to call to ask for pain medication when needed. pain medication times written on board. Patient anxious about going home today and having to fly due to unable to tolerate ferry for ride home. will continue to monitor.
--- NOTE | 2016-09-18 09:00 | NUR ---
RACHANA signed. JENNIFER Gomez
[2016-09-18 10:27] VITALS: BP 117/68; PULSE 77; RESP 16; O2SAT 94
[2016-09-18] MEDS: 0.9% Sodium Chloride 1,000 ML IV SCH (10:50)
--- NOTE | 2016-09-18 10:51 | PCM.PNMED ---
Subjective Date of Service September 18, 2016 Subjective The patient reports having 9 stools overnight, and 5 just since she got up this a.m. she feels is very weak and not yet ready to go home because of this. Because of her ulcerative colitis, she usually goes at the most 3 times daily. Most of it in the morning and less in the evening. She reports no hematochezia or increased abdominal cramping. Exam Vital Signs Vital Sign - Last Date Time Temp Pulse Resp B/P Pulse Ox O2 Delivery O2 Flow Rate FiO2 09/18/16 10:27 37.2 77 16 117/68 94 Room Air Intake and Output 09/17/16 09/17/16 09/18/16 Cumulative From/Thru 15:00 23:00 07:00 09/15/16 16:48 - 09/18/16 06:04 Intake Total 697 ml 700 ml 200 ml 6013 ml Output Total 775 ml 850 ml 700 ml 4775 ml Balance -78 ml -150 ml -500 ml 1238 ml Intake Oral 250 ml 700 ml 200 ml 1895 ml IV Total 447 ml 4118 ml Output Urine Total 775 ml 700 ml 3925 ml Urine/Stool Mix 150 ml 700 ml 850 ml # Bowel Movements 5 3 8 Exam Gen.: Laying in bed talking to relatives on the phone HEENT: Normocephalic, atraumatic Heart: Regular rate and rhythm Neck: Jugular neck vein distention noted Heart: Regular rate and rhythm no S3-S4 sounds lungs: Clear to auscultation bilaterally no crackles wheezes Abdomen nontender nondistended normal bowel sounds Extremities negative for edema psych negative for anxiety neuro no focal deficits IVs and Medications Medications Reviewed: Medications were reviewed in detail Lab and Diagnostics Result Diagram: 09/17/16 0637 09/17/16 0805 X-Rays, CTs and MRIs Date of Service: 09/15/16 1708 PROCEDURE: CT ABDOMEN AND PELVIS WITH CONTRAST (PNL-7102) INDICATIONS: Abd pain, ho colitis IMPRESSION: 1. Obstructing 14 x 10 mm proximal right ureteral calculus with right-sided hydronephrosis. Several smaller nonobstructing right renal calculi are also present. 2. Severe bilateral hip degenerative change. Right hip effusion. Dictated by: Tristin Fiore M.D. on 09/15/2016 at 19:31 Approved by: Tristin Fiore M.D. on 09/15/2016 at 19:37 Caution: Report not yet finalized and possibly incomplete! PROCEDURE: X-RAY RETROGRADE UROGRAPHY IMPRESSION: Moderate right hydronephrosis with multiple intraluminal filling defects related to stonea seen on recent CT. Dictated by: Dale MORATAYA Interpreted: Anh Nguyen MD on 09/16/2016 at 11: 47 Transcribed by: JAD on 09/16/2016 at 11:48 Assessment & Plan Patient is a 76 y/o female with a hx of ulcerative colitis presents to the ED via EMS complaining of RUQ abdominal pain, onset two weeks ago. Symptoms of bloody diarrhea and vomiting were temporarily resolved with prednisone. Abdominal pain returned today, with associated symptoms of one episode of vomiting. Patient was found to have right hydronephrosis confirmed by CT abdomen. Assessment #1 diarrhea: Unclear if it is a ulcerative colitis flareup versus C. difficile or some other kind of diarrhea -- Stool panel was sent if negative will consider steroids if patient becomes more symptomatic. -- Hydrate gently with 50 mL/h normal saline -- BMP labs are ordered -- Continue current symptomatic management Right hydronephrosis due to right ureteral calculus, present on admission. Acute s/p R ureteral stent placement - IV fluids discontinued - No antibiotics needed tonight but may be indicated prior to procedure tomorrow , Urology to decide - The patient is status post stent placement by Dr. Amos, patient is urinating feeling better: had slight hematuria last night, heparin was stopped. She says it is not a large bleed -- oxycodone for moderate pain, morphine for severe pain, tylenol 3 for mild pain -- It appears Dr. joseph is planning to do a lithotrypsy in 2 weeks, will f/u with him regarding d/c planning -- Surgery notes from : " double-J stent placement to temporize during her treatment for acute flare of her bowel disease with plans to treat the stone itself at a later date." Abdominal pain, present on admission. Acute. much improved. - Patient's abdominal pain most likely due to hydronephrosis, since patient's ulcerative colitis significantly improved upon taking prednisone with no further episodes of bloody diarrhea Ulcerative colitis, present on admission. Stable - Patient was on mesalamine that has recently been taken herself off of it, being very careful with her diet, taking ibuprofen for flares - Patient's abdominal pain most likely due to hydronephrosis, since there has been no blood with her stools, and patient reporting of different quality of pain untouched by usual comforting remedies Arthritis -She cannot take ibuprofen right now Tylenol 3 is ordered for mild pain, Continue morphine for surgical pain- -- I counselled her on asking for joint injections and/or fluroscopy guided back injections. She understands and appreciates Hx of TBI Hx of kidney stones Acetaminophen-fever/headache/mild/moderate pain Antiemetics, as needed Bowel regimen, as needed. Patient status: Patient was admitted under inpatient status with expected length of stay greater than two midnights due to severity of presenting symptoms , risk of adverse event, and complexity of treatment plan. Likely d/c home with HH on 09/19. She says she can get a ride in time on 09/19 GI Prophylaxis: Not indicated VTE Prophylaxis: Sub-Q Heparin (Unfractionated) VTE Mechanical Devices: Venous Foot Pump Resuscitation Status: DNR/DNI:Do Not Resuscitate/Intubate Time spent 30 min Ale Manuel DO September 18, 2016 10:51
[2016-09-18] MEDS: Codeine-APAP 30-300 mg Tablet PO PRN ×2 (11:46→18:35)
--- NOTE | 2016-09-18 11:51 | NUR ---
Social Work-readiness for discharge: Data:EMR reviewed. Pt is on day 3 of hospitalization for obst per H&P. Pt is not medically stable, anticipate 1 more day .SW spoke with with pt at bedside, SW role explained. Pt confirms that she will either be flying home and has all the information from her cousin to set this up herself or her sister will be driving over to take her home. Pt declines any SW needs. Per RN, pt has been up independent in her room. No discharge needs identified. SW will continue to follow if needs arise. Assessment:Pt who is independent at baseline. Plan:Pt to discharge home when medically stable via pOV. Pt to either set up flight back to [place] or Sister to provide transport. No discharge needs identified. SW will continue to follow if needs arise. JENNIFER Gomez
[2016-09-18 12:44] VITALS: BP 97/55; PULSE 75; RESP 20; O2SAT 95
--- NOTE | 2016-09-18 18:42 | NUR ---
Pain/BMs Pt c/o R sided abd pain needing PO PRN medications, at times overlapping Oxy and Tylenol w/ codeine. Pt was excited for d/c this AM then c/o increasing bowel movements. Stool sample sent, all tests negative.
[2016-09-18 20:52] VITALS: BP 113/62; PULSE 86; RESP 18; O2SAT 96
[2016-09-19 05:08] VITALS: BP 107/57; PULSE 78; RESP 18; O2SAT 97
[2016-09-19] MEDS: 0.9% Sodium Chloride 1,000 ML IV SCH (05:14)
[2016-09-19] MEDS: Codeine-APAP 30-300 mg Tablet PO PRN ×2 (05:14→19:37)
[2016-09-19] MEDS ORDERED: Potassium Chloride 20 mEq SR Tablet PO ONE (09:50)
[2016-09-19 12:36] VITALS: BP 108/63; PULSE 85; RESP 18; O2SAT 98
--- NOTE | 2016-09-19 15:00 | NUR ---
Social Work- readiness for discharge: Data: EMR reviewed. Pt is on day 4 of hospitalization for ulcerative colitis per H&P. Pt is not medically stable, anticipate likely tomorrow. ABDON spoke with pt at bedside, SW role explained. Pt is feeling overwhelmed with planning travel to get home, pt is requesting assistance. Pt is resides on [facility] and plans to fly home [facility]. Pt states she will need a taxi arranged from the hospital and then she will need reservation for airplane. Pt states she typically uses a fww to ambulate and would need DME to help her from the taxi to the airline. ABDON placed a call to Bright at [facility] [phone] to discuss. Bright states that flights out of [place] to [place] are at 7:20, 8:50, 11:20, and 3:20. Bright confirms that flights are $89.00 and pt would need to provide credit card to reserve spot on plan. Bright states that airport in [place] does not have a w/c, but [facility] does that they would be able to get pt out of the taxi. Bright states flights out of [place] leave 20 mins earlier that [place] so 7:00, 8:30, 11:00, and 3:00. Bright states flight at 3:00 out of [place] is only $65.00, all others flights are $89.00. ABDON confirmed with Bright that SW could cancel reservation tomorrow morning if pt is not ready to discharge. Pt requested SW use [employer] for transport. ABDON called [employer] [phone] and got quote of $75.00 from hospital to [facility] in [place] and $110.00 from Hospital to [facility]. [employer] just requested SW call tomorrow morning to set up time for pickle pumper from the hospital, so pt does not miss her flight. ABDON updated pt at bedside regarding above information. Pt would like to use [facility] due to having w/c assistance. ABDON called [facility] [employer] back and booked pt for the 3:00pm flight tomorrow. ABDON transferred call into the room and helped pt provide airline with credit card information. [employer] confirms pt is scheduled for the 3pm flight tomorrow and if pt does not discharge then SW will need to cancel flight. SW explained pt will likely need to discharge by 1:30 to make sure she has enough time to get her flight. SW to call in the morning and set up taxi with [employer] when discharge is confirmed. Pt is agreeable to plan and cost. Pts family to meet pt in [place]. SW will continue to follow. Assessment: Pt who is independent at baseline. Plan: Pt to discharge home when medically stable. SW has arranged flight through [employer] for tomorrow 09/20 at 3pm. Pt has already provided airline with credit card information. If pt does not discharge tomorrow, [employer] will need to called and reservation cancelled. SW will need to call [employer] in the morning if pt does discharge for a 1:30 pickle pumper to [facility] airport. SW will continue to follow. JENNIFER Gomez
--- NOTE | 2016-09-19 18:27 | NUR ---
Anxiety/BMs Imodium requested d/t frequent BMs. Post 1st dose, pt states to have had 4 loose stools. Pt anxious about d/c and transportation with such high number of loose stools. Education provided and lots of reassurance, will continue to monitor.
[2016-09-19 21:07] VITALS: BP 110/57; PULSE 83; RESP 18; O2SAT 97
[2016-09-20] MEDS: 0.9% Sodium Chloride 1,000 ML IV SCH ×2 (01:50→22:45)
--- NOTE | 2016-09-20 02:00 | PCM.PNMED ---
Subjective Date of Service September 20, 2016 Subjective Patient is in examined. She states that she is still hesitant to leave for a trip to her [place] because of the diarrhea. Stool PCR yesterday was negative. She was given loperamide and she states that it helped. She wants to go to tomorrow a.m.. Exam Vital Signs Vital Sign - Last Date Time Temp Pulse Resp B/P Pulse Ox O2 Delivery O2 Flow Rate FiO2 09/19/16 21:07 36.8 83 18 110/57 97 Room Air Intake and Output 09/19/16 09/19/16 09/20/16 Cumulative From/Thru 15:00 23:00 07:00 09/15/16 16:48 - 09/19/16 20:34 Intake Total 1460 ml 8749 ml Output Total 1420 ml 7920 ml Balance 40 ml 829 ml Intake Oral 920 ml 3533 ml IV Total 540 ml 5216 ml Output Urine Total 1420 ml 7070 ml Urine/Stool Mix 850 ml # Voids 3 4 # Bowel Movements 1 14 Exam Gen.: Laying in bed talking to relatives on the phone HEENT: Normocephalic, atraumatic Heart: Regular rate and rhythm Neck: Jugular neck vein distention noted Heart: Regular rate and rhythm no S3-S4 sounds lungs: Clear to auscultation bilaterally no crackles wheezes Abdomen nontender nondistended normal bowel sounds Extremities negative for edema psych negative for anxiety neuro no focal deficits IVs and Medications IV Fluids 50 cc/hr NSS Medications Reviewed: Medications were reviewed in detail Lab and Diagnostics Result Diagram: 09/17/16 0637 09/19/16 0713 X-Rays, CTs and MRIs Date of Service: 09/15/16 1708 PROCEDURE: CT ABDOMEN AND PELVIS WITH CONTRAST ([id number]) INDICATIONS: Abd pain, ho colitis IMPRESSION: 1. Obstructing 14 x 10 mm proximal right ureteral calculus with right-sided hydronephrosis. Several smaller nonobstructing right renal calculi are also present. 2. Severe bilateral hip degenerative change. Right hip effusion. Dictated by: Tristin Fiore M.D. on 09/15/2016 at 19:31 Approved by: Tristin Fiore M.D. on 09/15/2016 at 19:37 Caution: Report not yet finalized and possibly incomplete! PROCEDURE: X-RAY RETROGRADE UROGRAPHY IMPRESSION: Moderate right hydronephrosis with multiple intraluminal filling defects related to stonea seen on recent CT. Dictated by: Dale Maki RRA Interpreted: Anh Nguyen MD on 09/16/2016 at 11: 47 Transcribed by: JAD on 09/16/2016 at 11:48 Assessment & Plan Patient is a 76 y/o female with a hx of ulcerative colitis presents to the ED via EMS complaining of RUQ abdominal pain, onset two weeks ago. Symptoms of bloody diarrhea and vomiting were temporarily resolved with prednisone. Abdominal pain returned today, with associated symptoms of one episode of vomiting. Patient was found to have right hydronephrosis confirmed by CT abdomen. Assessment #1 diarrhea: Unclear if it is a ulcerative colitis flareup versus some other kind of diarrhea -- Stool panel was sent if negative. Loperamide for symptomatic relief -- Hydrate gently with 50 mL/h normal saline -- BMP labs are ordered -- Continue current symptomatic management Right hydronephrosis due to right ureteral calculus, present on admission. Acute s/p R ureteral stent placement - IV fluids discontinued - No antibiotics needed tonight but may be indicated prior to procedure tomorrow , Urology to decide - The patient is status post stent placement by Dr. Amos, patient is urinating feeling better: had slight hematuria last night, heparin was stopped. She says it is not a large bleed -- oxycodone for moderate pain, morphine for severe pain, tylenol 3 for mild pain -- It appears Dr. joseph is planning to do a lithotrypsy in 2 weeks, will f/u with him regarding d/c planning -- Surgery notes from : " double-J stent placement to temporize during her treatment for acute flare of her bowel disease with plans to treat the stone itself at a later date." Abdominal pain, present on admission. Acute. Resolved - Patient's abdominal pain most likely due to hydronephrosis, since patient's ulcerative colitis significantly improved upon taking prednisone with no further episodes of bloody diarrhea Ulcerative colitis, present on admission. Stable - Patient was on mesalamine that has recently been taken herself off of it, being very careful with her diet, taking ibuprofen for flares - Patient's abdominal pain most likely due to hydronephrosis, since there has been no blood with her stools, and patient reporting of different quality of pain untouched by usual comforting remedies Arthritis -She cannot take ibuprofen right now Tylenol 3 is ordered for mild pain, Continue morphine for surgical pain- -- I counselled her on asking for joint injections and/or fluroscopy guided back injections. She understands and appreciates Hx of TBI Hx of kidney stones Acetaminophen-fever/headache/mild/moderate pain Antiemetics, as needed Bowel regimen, as needed. Patient status: Patient was admitted under inpatient status with expected length of stay greater than two midnights due to severity of presenting symptoms , risk of adverse event, and complexity of treatment plan. We have been trying to discharge patient to her home in [facility]. She developed to the area on one stool PCR is negative it appears that she is settling down with loperamide. Social work has talked to her and made arrangements for her discharged tomorrow, she should be able to go home on 09/20 Pain Evaluation: Adequate Pain Control GI Prophylaxis: Not indicated VTE Prophylaxis: Sub-Q Heparin (Unfractionated) VTE Mechanical Devices: Venous Foot Pump Resuscitation Status: DNR/DNI:Do Not Resuscitate/Intubate Time spent 25 minutes Ale Manuel DO September 20, 2016 02:00
[2016-09-20] MEDS: Codeine-APAP 30-300 mg Tablet PO PRN ×3 (03:58→19:54)
[2016-09-20 03:59] VITALS: BP 135/72; PULSE 83; RESP 18; O2SAT 93
--- NOTE | 2016-09-20 06:13 | NUR ---
Pain/BM's/anxiety patient had multiple BM's overnight. Patient reports that immodium works for the first hour after she takes it then her loose stools come back. patient reports abdominal pain and cramping that is new for her and intense. Patient was medicated with 5mg oxycodone and tylenol with codiene every 4 hours for pain. patient reports " I am so excited to get to go home tomorrow, do you think they will let me go?" Patient states that she thinks her BM's may be caused from her anxiety at this point. Patient anxious over taking immodium and the possibility of it causing her to be constipated. Patient educated on immodium purpose. patient had multiple loose stools overnight. will continue to monitor.
[2016-09-20 08:38] LABS: Mean Corpuscular Hemoglobin 23.2 pg (27.0-35.0); Mean Corpuscular Volume 75.2 fL (81-100)
[2016-09-20 08:39] LABS: BASOPHILS % (AUTO) 0.3 % (0-3); EOSINOPHILS % (AUTO) 1.2 % (0-5); MONOCYTES % (AUTO) 25.7 % (4-12); NEUTROPHILS % (AUTO) 64.2 % (40-74); Platelet Count 207 bil/L (150-400)
[2016-09-20 09:00] LABS: Magnesium 1.6 mg/dL (1.6-2.6)
--- NOTE | 2016-09-20 10:39 | NUR ---
Social Work- readiness for discharge: Data: EMR reviewed. Pt is on day 5 of hospitalization for ulcerative colitis per H&P. Per morning rounds pt is not medically stable, anticipate likely D/C tomorrow. pt is requesting assistance wit travel home. Pt is resides on [facility] and plans to fly home through [employer]. Pt states she will need a taxi arranged from the hospital and then she will need reservation for airplane. Pt states she typically uses a fww to ambulate and would need DME to help her from the taxi to the airline. SW had flight booked with [employer] at 3pm today. SW called [place] [employer] [phone] to reschedule flight, spoke to Bharti. Bharti stated she can reschedule the flight for tomorrow but it will need to be after 5pm and a charter plane, as the [place] [address] is closed until 5pm. Cost would be $269.50. Confirmed SW can call tomorrow morning to cancel if pt is still not medically cleared for discharge at that time or has made other arrangements. [facility] has w/c that they would be able to use to get pt out of the taxi. Pt requested SW use [employer] for transport. SW called [employer] [phone] and got quote of $110.00 from Hospital to [place] [facility]. [employer] just requested SW call tomorrow morning to set up time for continuous pickling line pickler helper from the hospital, so pt does not miss her flight. SW updated pt re: charge in cost and timing and se was agreeable. SW will contact [employer] tomorrow morning to confirm or reschedule charter. SW will continue to follow. Assessment: Pt who is independent at baseline. Plan: Pt to discharge home when medically stable. SW has tentatively arranged for charter flight through [employer] for tomorrow 09/21 at 5:15pm. Pt has already provided airline with credit card information. If pt does not discharge tomorrow, [employer] will need to called and reservation cancelled. SW will need to call [employer] in the morning if pt does discharge for a 3:30 continuous pickling line pickler helper to [facility] airport. SW will continue to follow. JENNIFER Pennington
[2016-09-20] MEDS ORDERED: Potassium Chloride 20 mEq SR Tablet PO ONE (10:42)
[2016-09-20] MEDS ORDERED: Magnesium Sulf 2 Gm/50mL Water 2 GM in IV Premix 1 EACH IV ONE (10:42)
[2016-09-20] MEDS ORDERED: KCl 40 mEq/D5W 500 mL 40 MEQ in IV Premix 500 EACH IV ONE (10:42)
[2016-09-20 13:30] VITALS: BP 115/52; PULSE 80; RESP 18; O2SAT 97
--- NOTE | 2016-09-20 13:49 | PCM.CHPMED ---
Subjective Date of Service: September 20, 2016 Primary Physician: Admitting Physician: Isauro Ding MD Primary Care Physician: Lio Chan MD Attending Physician: Isauro Ding MD Chief Complaint: Chief Complaint: Hematochezia History of Present Illness: 76-year-old female with history of ulcerative colitis diagnosed 5 years ago and treated with mesalamine until 2 years ago presents to the emergency department via EMS helicopter from [facility] with severe right upper quadrant pain and recent symptoms consistent with UC flare. Patient states that approximately 2 weeks ago she noted some small amounts of blood in her stool with increasing abdominal pain. After couple days patient presented to her primary care doctor who prescribed her oral prednisone to control her flare. This treatment initially worked to control the bleeding and decrease some of her abdominal pain but a few days after starting the prednisone she had severe increase in her abdominal pain and presented to the ED with 9 out of 10 pain. Patient denies any fever associated with these events, chest pain, constipation, but does attest to diarrhea, and one episode of vomiting over the last week. Patient states that due to her abdominal pain she has been taking ibuprofen 600 mg 3 times a day for an extended period of time, possibly going back months or even a year. On presentation to the ED a CT of the abdomen showed an obstructing 14 x 10 mm right ureteral calculus with right hydronephrosis and patient underwent stenting by Dr. Amos with resolution of some of the patient's pain. Patient states that she is currently having diarrhea but denies any hematochezia/ melena. She denies fevers, chills, nausea, vomiting, chest pain, but states that she still does have some abdominal pain. She states that currently this does not feel like it previous ulcerative colitis flare. Patient states that ulcerative class was diagnosed 5 years ago 2 to hematochezia and abdominal pain with flex sigmoidoscopy. Patient states that this was followed by colonoscopy was unable to relate the results by colonoscopy we do not know this is pancolitis or not. Patient was placed on mesalamine discontinued this medication 2 years ago and states that she has not had a flare since. 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 requiring some sort of neurosurgery History of scoliosis Surgical History Right Thumb Facial surgery (for traumatic injury) Patient reports last colonoscopy 5-6 years ago at [facility] were ulcerative colitis diagnosis was allegedly made (reported 08/2016) Reports: Appendectomy Home Medications Ibuprofen 600 mg 3 times a day when necessary Allergies: Coded Allergies: Sulfa (Sulfonamide Antibiotics) (Verified Allergy, Mild, nauesa, 09/15/16) Penicillins (Verified Allergy, Unknown, not sure, 09/15/16) Family History Family History Father with heart condition Mother of bowel perforation in her 80s Social History Hx Alcohol Use: Yes ("very seldom")Hx Substance Use: NoHx Tobacco Use: No Smoking Status: Never Smoker Living Arrangement: Alone (on [facility]) Exam Vital Signs Vital Sign - Last Date Time Temp Pulse Resp B/P Pulse Ox O2 Delivery O2 Flow Rate FiO2 09/20/16 03:59 36.8 83 18 135/72 93 Room Air Intake and Output 09/19/16 09/19/16 09/20/16 Cumulative From/Thru 15:00 23:00 07:00 09/15/16 16:48 - 09/20/16 06:26 Intake Total 1460 ml 200 ml 8949 ml Output Total 1420 ml 1850 ml 9770 ml Balance 40 ml -1650 ml -821 ml Intake Oral 920 ml 200 ml 3733 ml IV Total 540 ml 5216 ml Output Urine Total 1420 ml 400 ml 7470 ml Urine/Stool Mix 1450 ml 2300 ml # Voids 3 4 # Bowel Movements 1 14 General: Alert, Oriented X3, Cooperative, No Acute Distress Eyes: PERRLA Mouth: Mucous Membr Moist/[place] Chest & Lungs: Chest Wall Normal, Clear to auscultation & percussion Cardiovascular: Exam Unremarkable, Regular Rate/Rhythm Abdomen: Tender, Non-distended, Normoactive bowel tones Extremities: No cyanosis/clubbing/edma bilat Neurological: Grossly Neurologically Intact Lab and Diagnostics Result Diagram: 09/20/1682409/20/16824 Assessment & Plan Assessment 76-year-old female with history of ulcerative colitis who reports recent hematochezia and abdominal pain that is most likely attributed to an obstructing renal stone and UC. It appears that the patient recently had a ulcerative colitis flare that was briefly treated with prednisone that was discontinued due to her admission to the hospital where she stopped receiving steroids. Currently there is little information regarding the patient's history of ulcerative colitis except for reports that she has not had a colonoscopy in 5 years and is currently not taking any medications. Plans and recommendations: Start GoLJAYLA ruiz with a colonoscopy planned for tomorrow in pm 09/21/16. Following the colonoscopy and biopsies, we anticipate in starting iv steroids if appropriate and transition to PO steroids once ok to d/c home. Will consider starting Lialda 2.4g po qday here as well. Also following the colonoscopy, the patient's stool should be observed to decrease and she can be advanced to soft diet should she tolerate it. Patient should follow-up with GI in 1 month for further evaluation of UC flare. Thank you for allowing us to participate in the care of this patient Problems: Pain Evaluation: Adequate Pain Control GI Prophylaxis: Not indicated VTE Prophylaxis: Sub-Q Heparin (Unfractionated) VTE Mechanical Devices: Venous Foot Pump Resuscitation Status: DNR/DNI:Do Not Resuscitate/Intubate Ugo Larose DO September 20, 2016 13:49 Lio Bustillos MD September 20, 2016 14:07
[2016-09-20] MEDS ORDERED: PEG/Electrolytes 4,000 mL Solution PO ONE (16:00)
--- NOTE | 2016-09-20 17:00 | NUR ---
Prep/anxiety Pt concerned about being able to consume prep, would like to know is she should get procedure prep in as soon as possible. This RN instructed pt to consume prep as she would normal consume fluids. Pt advised to avoid "chugging" prep down as could lead to nausea and possible vomiting. Pt reports is very anxious about upcoming procedure. This RN encouraged pt to verbalize concerns, to recognize what she is able to control and what is outside of her control. Pt reports is feeling better about up coming procedure and will continue to monitor her anxiety. Call light with in reach, will continue to monitor.
--- NOTE | 2016-09-20 19:22 | PCM.PNMED ---
Subjective Date of Service September 20, 2016 Subjective Reports continued right sided abdominal pain and diarrhea Exam Vital Signs Vital Sign - Last Date Time Temp Pulse Resp B/P Pulse Ox O2 Delivery O2 Flow Rate FiO2 09/20/16 13:30 37.4 80 18 115/52 97 Room Air Intake and Output 09/19/16 09/19/16 09/20/16 Cumulative From/Thru 15:00 23:00 07:00 09/15/16 16:48 - 09/20/16 06:26 Intake Total 1460 ml 200 ml 8949 ml Output Total 1420 ml 1850 ml 9770 ml Balance 40 ml -1650 ml -821 ml Intake Oral 920 ml 200 ml 3733 ml IV Total 540 ml 5216 ml Output Urine Total 1420 ml 400 ml 7470 ml Urine/Stool Mix 1450 ml 2300 ml # Voids 3 4 # Bowel Movements 1 14 General: Alert, Oriented X3, Cooperative, No Acute Distress Head: Normal Eyes: Scleral Anicteric Mouth: Mucous Membr Moist/[place] Neck: Supple Chest & Lungs: Chest Wall Normal, Clear to auscultation & percussion Cardiovascular: Regular Rate/Rhythm Pulses: NL carotid, radial, femoral, DP, PT Abdomen: Tender (at right lower abd), Non-distended, Normoactive bowel tones, Soft Extremities: No cyanosis/clubbing/edma bilat Neurological: Grossly Neurologically Intact, Normal Speech IVs and Medications Medications Reviewed: Medications were reviewed in detail Lab and Diagnostics Result Diagram: 09/20/1682409/20/16 0825 X-Rays, CTs and MRIs Date of Service: 09/15/16 1708 PROCEDURE: CT ABDOMEN AND PELVIS WITH CONTRAST ([id number]) INDICATIONS: Abd pain, ho colitis IMPRESSION: 1. Obstructing 14 x 10 mm proximal right ureteral calculus with right-sided hydronephrosis. Several smaller nonobstructing right renal calculi are also present. 2. Severe bilateral hip degenerative change. Right hip effusion. Dictated by: Tristin Fiore M.D. on 09/15/2016 at 19:31 Approved by: Tristin Fiore M.D. on 09/15/2016 at 19:37 Caution: Report not yet finalized and possibly incomplete! PROCEDURE: X-RAY RETROGRADE UROGRAPHY IMPRESSION: Moderate right hydronephrosis with multiple intraluminal filling defects related to stonea seen on recent CT. Dictated by: Dale Maki RRA Interpreted: Anh Nguyen MD on 09/16/2016 at 11: 47 Transcribed by: JAD on 09/16/2016 at 11:48 Assessment & Plan 76 y/o female with a hx of ulcerative colitis presents to the ED via EMS complaining of RUQ abdominal pain, onset two weeks ago. Symptoms of bloody diarrhea and vomiting were temporarily resolved with prednisone. Patient was found to have right hydronephrosis confirmed by CT abdomen. # Acute diarrhea on chronic. Present on admission. Ongoing - Unclear if it is a ulcerative colitis flare versus some other etiology. - Stool PCR negative - GI consulted today. Will followup with recommendations # Acute right hydronephrosis due to right ureteral calculus, present on admission. - Appreciate urology consult. Will followup with recommendations - Post Cystoscopy with right-sided retrograde pyelogram and right-sided double- J stent placement on 09/16/[address] Amos - Oxycodone for moderate pain, IV morphine for severe pain, Tylenol for mild pain as needed - Per earlier notes possible Lithotripsy in [address] Silva as outpatient # Acute hypokalemia. present on admission. Ongoing - Replete and followup # Chronic ulcerative colitis, present on admission. - GI consult as noted above # Chronic Arthritis. stable. - Continue with supportive care Dispo: 1-3 days pending further GI workup noted above GI Prophylaxis: Not indicated VTE Prophylaxis: Sub-Q Heparin (Unfractionated) VTE Mechanical Devices: Venous Foot Pump Resuscitation Status: DNR/DNI:Do Not Resuscitate/Intubate Remigio Shook September 20, 2016 19:22
[2016-09-20 22:04] VITALS: BP 110/63; PULSE 84; RESP 16; O2SAT 97
[2016-09-21 05:11] VITALS: BP 127/63; PULSE 102; RESP 18; O2SAT 99
[2016-09-21 08:37] LABS: Mean Corpuscular Hemoglobin 23.4 pg (27.0-35.0); Mean Corpuscular Volume 74.6 fL (81-100)
[2016-09-21] MEDS ORDERED: Lactated Ringer's 1,000 ML IV ONE (09:35)
--- NOTE | 2016-09-21 10:12 | NUR ---
SW - Readiness for Discharge Data: Pt is on day 6 of hospitalization for obst, uropathy w/ stone, ulcerative colitis. EMR reviewed. Per morning rounds pt is not medically ready to discharge, has colonoscopy scheduled today and will likely be here one to two more days. SW contacted [employer] to update them that pt will not needs charter flight this afternoon but would still like to book this flight when she discharges. SW will keep them updated and let them know tomorrow morning if discharge is probable. SW will update pt and continue to follow. Assessment: Pt who is independent at baseline Plan: Pt to discharge home to [facility] when medically ready with SW arranging Taxi via [employer] and flight via [place]. SW will continue to follow. JENNIFER Pennington
--- NOTE | 2016-09-21 10:50 | NUR ---
SW updated pt and she appeared to understand. ABDON will continue to follow. JENNIFER Pennington
[2016-09-21 13:55] VITALS: BP 121/67; PULSE 80; RESP 18; O2SAT 97
--- NOTE | 2016-09-21 15:25 | NUR ---
To Endo Patient departed to endoscopy for a colonoscopy via gurney. Patient alert and oriented prior to transport. Patient reporting minimal pain in right side at time of transport. Patient completed colon prep but had a scant amt of thin gusman colored stool just prior to scheduled endoscopy (endo staff notified). Patient did report that she is feeling better at this time.
[2016-09-21 15:36] VITALS: BP 127/71; PULSE 84; RESP 14; O2SAT 97
[2016-09-21] MEDS ORDERED: fentaNYL-PF 50 mCg/mL 2 mL Inj ONE (15:37)
[2016-09-21] MEDS ORDERED: fentaNYL-PF 50 mCg/mL 2 mL Inj IVPUSH PRN (15:45)
[2016-09-21] MEDS: 0.9% Sodium Chloride 1,000 ML IV SCH ×3 (16:03→22:16)
[2016-09-21 16:24] VITALS: BP 136/64; PULSE 85; RESP 14; O2SAT 99
[2016-09-21 16:33] VITALS: BP 120/61; PULSE 89; RESP 16; O2SAT 97
--- NOTE | 2016-09-21 18:10 | ENDO ---
[address] [address] ENDOSCOPY PROCEDURE PATIENT: CLARITA CHEATHAM : 1940 MR#: [id number] ADMIT: 09/15/2016 JOB ID: [id number] OPERATION: Colonoscopy with biopsy. PREOPERATIVE DIAGNOSIS(ES): Diarrhea. POSTOPERATIVE DIAGNOSIS: 1. Loss of architecture and vascularity with ulcerations from the rectum in continuous fashion to 50 cm from the anus status post biopsy most consistent with ulcerative colitis. 2. Everything proximal in the terminal ileum to 15 cm was normal, status post biopsy. ANESTHESIA: 1. Fentanyl 100 mcg. 2. Versed 5 mg IV administered. COMPLICATIONS: None. BLOOD LOSS: Minimal. DESCRIPTION OF PROCEDURE: After risks and benefits were explained to the patient, informed consent was obtained. After anesthesia administered, colonoscope was inserted from the rectum to the terminal ileal mucosa. Prep of the patient was suboptimal. After procedure was done, the scope withdrawn and procedure terminated. Upon inspection of the anus, ulcerations are seen throughout the entire examination. There was loss of architecture and vascularity with ulcerations from the rectum to 50 cm from the anus, concerning for prior history of ulcerative colitis. Several biopsies were taken in this region of the colon proximal to this. The terminal ileum appeared normal. Biopsies were taken of the terminal ileum and also random colon. Retroflexion was not performed. IMPRESSION: Loss of architecture and vascularity with ulcerations from the rectum to 50 cm from the anus concerning for left-sided ulcerative colitis on biopsy. RECOMMENDATIONS: 1. Start clear liquid diet. 2. Lialda 2.4 g by mouth once a day. 3. Rowasa enemas 6 g per rectum q.h.s. 4. Start IV Solu-Medrol 60 mg IV t.i.d. Will continue to follow. MTDD
--- NOTE | 2016-09-21 18:33 | PCM.PNMED ---
Subjective Date of Service September 21, 2016 Subjective Reports continued right sided abdominal pain and diarrhea but improving Exam Vital Signs Vital Sign - Last Date Time Temp Pulse Resp B/P Pulse Ox O2 Delivery O2 Flow Rate FiO2 09/21/16 16:33 89 16 120/61 97 Room Air 09/21/16 13:55 36.9 Intake and Output 09/20/16 09/20/16 09/21/16 Cumulative From/Thru 15:00 23:00 07:00 09/15/16 16:48 - 09/21/16 06:48 Intake Total 600 ml 4381 ml 82404 ml Output Total 1800 ml 1200 ml 82801 ml Balance -1200 ml 3181 ml 2160 ml Intake Oral 600 ml 3500 ml 7833 ml IV Total 881 ml 7097 ml Output Urine Total 500 ml 7970 ml Urine/Stool Mix 1300 ml 1200 ml 4800 ml # Voids 4 # Bowel Movements 8 22 Exam General: Alert, Cooperative, No Acute Distress Head: Normal Eyes: Scleral Anicteric Mouth: Mucous Membr Moist/[place] Neck: Supple Chest & Lungs: Chest Wall Normal, Clear to auscultation bilat Cardiovascular: Regular Rate/Rhythm Pulses: NL carotid, radial, femoral, DP, PT Abdomen: Tender (at right lower abd), Non-distended, Normoactive bowel tones, Soft Extremities: No cyanosis/clubbing/edema bilat Neurological: Grossly Neurologically Intact, Normal Speech IVs and Medications Medications Reviewed: Medications were reviewed in detail Lab and Diagnostics Result Diagram: 09/21/16 0830 09/21/16 0830 X-Rays, CTs and MRIs Date of Service: 09/15/16 1708 PROCEDURE: CT ABDOMEN AND PELVIS WITH CONTRAST (PNL-7102) INDICATIONS: Abd pain, ho colitis IMPRESSION: 1. Obstructing 14 x 10 mm proximal right ureteral calculus with right-sided hydronephrosis. Several smaller nonobstructing right renal calculi are also present. 2. Severe bilateral hip degenerative change. Right hip effusion. Dictated by: Tristin Fiore M.D. on 09/15/2016 at 19:31 Approved by: Tristin Fiore M.D. on 09/15/2016 at 19:37 Caution: Report not yet finalized and possibly incomplete! PROCEDURE: X-RAY RETROGRADE UROGRAPHY IMPRESSION: Moderate right hydronephrosis with multiple intraluminal filling defects related to stonea seen on recent CT. Dictated by: Dale Maki RRA Interpreted: Anh Nguyen MD on 09/16/2016 at 11: 47 Transcribed by: JAD on 09/16/2016 at 11:48 Assessment & Plan 76 y/o female with a hx of ulcerative colitis presents to the ED via EMS complaining of RUQ abdominal pain, onset two weeks ago. Symptoms of bloody diarrhea and vomiting were temporarily resolved with prednisone. Patient was found to have right hydronephrosis confirmed by CT abdomen. # Acute diarrhea on chronic. Present on admission. Ongoing - Unclear if it is a ulcerative colitis flare versus some other etiology. - Stool PCR negative - Appreciate GI consult. Will followup with recommendations - Followup recommendation post pending colonoscopy today # Acute right hydronephrosis due to right ureteral calculus, present on admission. - Appreciate urology consult. Will followup with recommendations - Post Cystoscopy with right-sided retrograde pyelogram and right-sided double- J stent placement on 09/16/[address] Amos - Oxycodone for moderate pain, IV morphine for severe pain, Tylenol for mild pain as needed - Per earlier notes possible Lithotripsy in [address] Silva as outpatient # Acute hypokalemia. present on admission. Ongoing - Replete and followup # Chronic ulcerative colitis, present on admission. - GI consult as noted above # Chronic Arthritis. stable. - Continue with supportive care Dispo: 2-3 days pending further GI workup noted above GI Prophylaxis: Not indicated VTE Prophylaxis: Sub-Q Heparin (Unfractionated) VTE Mechanical Devices: Venous Foot Pump Resuscitation Status: DNR/DNI:Do Not Resuscitate/Intubate Remigio Shook September 21, 2016 18:33
[2016-09-21 19:44] VITALS: BP 119/61; PULSE 99; RESP 12; O2SAT 99
[2016-09-21] MEDS ORDERED: METHYLPREDNISOLONE SODIUM SUCCINATE IV SCH (21:05)
[2016-09-22 04:40] VITALS: BP 124/68; PULSE 75; RESP 14; O2SAT 96
[2016-09-22 06:57] LABS: Mean Corpuscular Hemoglobin 23.3 pg (27.0-35.0); Mean Corpuscular Volume 74.1 fL (81-100)
--- NOTE | 2016-09-22 09:42 | PCM.PNMED ---
Subjective Date of Service September 22, 2016 Subjective GI Progress notes Yesterday patient underwent colonoscopy with changes in the descending colon consistent with ulcerative colitis. Pt was started on Solu-medrol 60 TID. Rowasa enemas also started. Lialda was not started due to pharmacy not having it on formulary; working with them on this issue. Overnight patient states she has done better. Denied any substantial bm won interview. No pain on her left side but does still have some on her right. Denies f/c, n/v. Patient has concerns about having to continue enemas at home and this was discussed. Exam Vital Signs Vital Sign - Last Date Time Temp Pulse Resp B/P Pulse Ox O2 Delivery O2 Flow Rate FiO2 09/22/16 04:40 36.6 75 14 124/68 96 Room Air Intake and Output 09/21/16 09/21/16 09/22/16 Cumulative From/Thru 15:00 23:00 07:00 09/15/16 16:48 - 09/22/16 04:37 Intake Total 1249 ml 345 ml 81505 ml Output Total 1750 ml 850 ml 02660 ml Balance -501 ml -505 ml 1154 ml Intake Oral 600 ml 345 ml 8778 ml IV Total 649 ml 7746 ml Output Urine Total 850 ml 850 ml 9670 ml Stool Total 900 ml 900 ml Urine/Stool Mix 4800 ml # Voids 2 6 # Bowel Movements 0 22 Exam Gen: AOx3; NAD Cardio: RRR with systolic murmur noted Resp: CTA bilaterally Abdominal: soft, non-distended, mildly tender on left and moderately tender on right; Ext: no edema or signs of cyanosis Psych: moderately anxious IVs and Medications Medications Reviewed: Medications were reviewed in detail Lab and Diagnostics Result Diagram: 09/22/16 0632 09/21/16 0830 X-Rays, CTs and MRIs Date of Service: 09/15/16 1708 PROCEDURE: CT ABDOMEN AND PELVIS WITH CONTRAST (PNL-7102) INDICATIONS: Abd pain, ho colitis IMPRESSION: 1. Obstructing 14 x 10 mm proximal right ureteral calculus with right-sided hydronephrosis. Several smaller nonobstructing right renal calculi are also present. 2. Severe bilateral hip degenerative change. Right hip effusion. Dictated by: Tristin Fiore M.D. on 09/15/2016 at 19:31 Approved by: Tristin Fiore M.D. on 09/15/2016 at 19:37 Caution: Report not yet finalized and possibly incomplete! PROCEDURE: X-RAY RETROGRADE UROGRAPHY IMPRESSION: Moderate right hydronephrosis with multiple intraluminal filling defects related to stonea seen on recent CT. Dictated by: Dale MORATAYA Interpreted: Anh Nguyen MD on 09/16/2016 at 11: 47 Transcribed by: JAD on 09/16/2016 at 11:48 Assessment & Plan Assessment 76 year old female who presented to the hospital with sharp abdominal pain and recent hematochezia. Ureteral stones were identified and stents were placed by urology which reduced the patients abdominal pain. GI was consulted to evaluate the hematochezia. Pt reports history of ulcerative colitis diagnosed 5 years ago by colonoscopy, however, she was unable to characterize her disease and no records are available. Patient underwent colonoscopy 09/21/16 with findings consistent with left sided ulcerative colitis. Patient started on Rowasa and Solumedrol and today patient is improved with no complaints of diarrhea or hematochezia. For further specifics please see the procedure note. Plan - Continue Solu-medrol 60mg iv Q8 today; if continue to improve clinically tomorrow, then anticipate decreasing to 60mg iv BID - Start Lialda 2.4mg daily; discussed with pharmacy and filled medication request as it is not on formulary - Continue Rowasa 6g hs per rectum - Advance diet to soft low residue; NO MILK OR LACTOSE - Encourage patient to keep a stool journal to monitor presence of blood and frequency of diarrhea We will continue to follow GI Prophylaxis: Not indicated VTE Prophylaxis: Sub-Q Heparin (Unfractionated) VTE Mechanical Devices: Venous Foot Pump Resuscitation Status: DNR/DNI:Do Not Resuscitate/Intubate Attending Statement agree with assessment and plan above Ugo Larose DO September 22, 2016 09:42 Lio Bustillos MD September 22, 2016 10:34
[2016-09-22] MEDS: MethylprednisoLONE Sodium Succinate 40 mg/mL Inj IV SCH ×3 (10:15→20:36)
[2016-09-22 13:51] VITALS: BP 157/82; PULSE 84; RESP 16; O2SAT 96
--- NOTE | 2016-09-22 14:00 | NUR ---
SW Continued Discharge Planning Data: Pt is on day 7 of hospitalization for Obst, uropathy w/stone, ulcerative colitis. EMR reviewed. Per morning rounds pt is currently on IVABX and will be discharged when completed, likely at least 2 more days. SW contacted [employer] to update. Confirmed that runway at [facility] will reopen Sunday 09/24, but will be closed between 12:30 and 4 pm. This is also the beginning of a holiday weekend so scheduled flights are likely to fill up. Without a clear discharge date SW was unable to book flight. Will attempt to call the day before if discharge seems likely. If all scheduled flights are booked when pt is ready to discharge pt can book a charter flight. SW updated pt who is agreeable to booking a charter flight if necessary. Pt will take [employer] taxi to [facility] and this can be arranged by SW on day of discharge. SW will continue to follow for needs. Assessment: Pt who is independent at baseline Plan: Pt to discharge home via taxi to [place] and flight from [place] to [place] when medically ready. SW to arrange taxi and flight. No further needs assessed. SW will continue to follow. JENNIFER Pennington
--- NOTE | 2016-09-22 16:52 | PCM.PNMED ---
Subjective Date of Service September 22, 2016 Subjective Says overall feeling a lot more improved Exam Vital Signs Vital Sign - Last Date Time Temp Pulse Resp B/P Pulse Ox O2 Delivery O2 Flow Rate FiO2 09/22/16 13:51 36.7 84 16 157/82 96 Room Air Intake and Output 09/21/16 09/21/16 09/22/16 Cumulative From/Thru 15:00 23:00 07:00 09/15/16 16:48 - 09/22/16 04:37 Intake Total 1249 ml 345 ml 87446 ml Output Total 1750 ml 850 ml 99989 ml Balance -501 ml -505 ml 1154 ml Intake Oral 600 ml 345 ml 8778 ml IV Total 649 ml 7746 ml Output Urine Total 850 ml 850 ml 9670 ml Stool Total 900 ml 900 ml Urine/Stool Mix 4800 ml # Voids 2 6 # Bowel Movements 0 22 Exam General: Alert, Cooperative, No Acute Distress Head: Normal Eyes: Scleral Anicteric Mouth: Mucous Membr Moist/[place] Neck: Supple Chest & Lungs: Chest Wall Normal, Clear to auscultation bilat Cardiovascular: Regular Rate/Rhythm Pulses: NL carotid, radial, femoral, DP, PT Abdomen: Tender (mild and at right lower abd), Non-distended, Normoactive bowel tones, Soft Extremities: No cyanosis/clubbing/edema bilat Neurological: Grossly Neurologically Intact, Normal Speech IVs and Medications Medications Reviewed: Medications were reviewed in detail Lab and Diagnostics Result Diagram: 09/22/16 0632 09/21/16 0830 X-Rays, CTs and MRIs Date of Service: 09/15/16 1708 PROCEDURE: CT ABDOMEN AND PELVIS WITH CONTRAST (PNL-7102) INDICATIONS: Abd pain, ho colitis IMPRESSION: 1. Obstructing 14 x 10 mm proximal right ureteral calculus with right-sided hydronephrosis. Several smaller nonobstructing right renal calculi are also present. 2. Severe bilateral hip degenerative change. Right hip effusion. Dictated by: Tristin Fiore M.D. on 09/15/2016 at 19:31 Approved by: Tristin Fiore M.D. on 09/15/2016 at 19:37 Caution: Report not yet finalized and possibly incomplete! PROCEDURE: X-RAY RETROGRADE UROGRAPHY IMPRESSION: Moderate right hydronephrosis with multiple intraluminal filling defects related to stonea seen on recent CT. Dictated by: Dale Maki RRA Interpreted: Anh Nguyen MD on 09/16/2016 at 11: 47 Transcribed by: JAD on 09/16/2016 at 11:48 Assessment & Plan 76 y/o female with a hx of ulcerative colitis presents to the ED via EMS complaining of RUQ abdominal pain, onset two weeks ago. Symptoms of bloody diarrhea and vomiting were temporarily resolved with prednisone. Patient was found to have right hydronephrosis confirmed by CT abdomen. # Acute diarrhea on chronic. Present on admission. Ongoing - Unclear if it is a ulcerative colitis flare versus some other etiology. - Stool PCR negative - Appreciate GI consult. Will followup with recommendations - Post colonoscopy on 09/21 with findings consistent with left sided ulcerative colitis - Continue Solu-medrol 60mg iv Q8 today; if continue to improve clinically tomorrow, then anticipate decreasing to 60mg iv BID - Lialda 2.4mg daily - Rowasa 6g hs per rectum - Advance diet to soft low residue; NO MILK OR LACTOSE - Encourage patient to keep a stool journal to monitor presence of blood and frequency of diarrhea # Acute right hydronephrosis due to right ureteral calculus, present on admission. - Appreciate urology consult. Will followup with recommendations - Post Cystoscopy with right-sided retrograde pyelogram and right-sided double- J stent placement on 09/16/[address] Amos - Oxycodone for moderate pain, IV morphine for severe pain, Tylenol for mild pain as needed - Per earlier notes possible Lithotripsy in [address] Silva as outpatient # Acute hypokalemia. present on admission. Resolved # Chronic ulcerative colitis, present on admission. - GI consult and plan as noted above # Chronic Arthritis. stable. - Continue with supportive care Dispo: 2-3 days pending further GI workup and treatment Plan We will continue to follow GI Prophylaxis: Not indicated VTE Prophylaxis: Sub-Q Heparin (Unfractionated) VTE Mechanical Devices: Venous Foot Pump Resuscitation Status: DNR/DNI:Do Not Resuscitate/Intubate Remigio Shook September 22, 2016 16:52
--- NOTE | 2016-09-22 19:27 | NUR ---
Pain/Diet: Patient stated that she has ot had pain today. Patient stated that she is feeling much better today than yesterday. She has tolerated her soft / low residual diet without issues.
[2016-09-22] MEDS: 0.9% Sodium Chloride 1,000 ML IV SCH (19:55)
[2016-09-22] MEDS: MESALAMINE RECTAL SCH (20:44)
[2016-09-22] MEDS: Codeine-APAP 30-300 mg Tablet PO PRN (20:47)
[2016-09-22 20:50] VITALS: BP 162/80; PULSE 76; RESP 16; O2SAT 98
--- NOTE | 2016-09-22 22:25 | NUR ---
ROWASA ENEMA At start of shift, RN went over plan for the shift. RN informed pt that Rowasa enema was scheduled to be administered this evening, and explained to pt the purpose of the medication. Pt very apprehensive to have medication administered, pt stated, "one doctor said I would have do this every day for the rest of my life, another dr said it wasn't necessary." Pt would like to clarify medication before having it administered. Rowasa enema not administered tonight.
[2016-09-23 04:52] VITALS: BP 152/79; PULSE 68; RESP 16; O2SAT 98
--- NOTE | 2016-09-23 05:26 | NUR ---
PAIN Pt c/o "7" out of 10 pain in Right side and both legs at start of shift. Prn dose of oxycodone given initially, upon reassessment, pt states, "side pain in better, but my legs still really hurt." Dose of prn tylenol w/ codeine given. Pt able to rest/sleep more comfortably. Continue to monitor. Call light in reach. Intentional rounding.
[2016-09-23] MEDS: MethylprednisoLONE Sodium Succinate 40 mg/mL Inj IV SCH ×2 (09:01→20:50)
--- NOTE | 2016-09-23 10:30 | PATH ---
SURGICAL PATHOLOGY Attending Physician:Lio Bustillos MD CASE STATUS: Signed Out PATIENT NAME: CLARITA CHEATHAM PID: [id number] : 1940 DATE COLLECTED:09/21/2016 00:00 SPECIMEN: 1: Ileum, Biopsy 2: Colon, Biopsy 3: Colon, Biopsy CLINICAL HISTORY: BLOODY DIARRHEA 1. TI BX 2. RANDOM COLON 3. 50CM COLON BX FINAL DIAGNOSIS: 1.TERMINAL ILEUM BIOPSY: FRAGMENTS OF NORMAL-APPEARING TERMINAL ILEUM MUCOSA. Negative for granulomas. Negative for dysplasia and malignancy. 2.RANDOM COLON BIOPSIES: FRAGMENTS OF NORMAL-APPEARING COLON MUCOSA. Negative for significant architectural distortion. Negative for significant inflammation, dysplasia and malignancy. 3.COLON BIOPSY AT 50 CM: DIFFUSE CHRONIC ACTIVE COLITIS WITH ULCERATION AND FOCAL SUPERFICIAL GRANULOMATOUS CHANGES (SEE COMMENT). Negative for dysplasia and malignancy. 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 GROSS DESCRIPTION: The specimen is received in three formalin filled containers labeled with the patient's name. 1). The specimen is sublabeled " TI " and consists of a 0.2 x 0.2 x 0.2 CM portion of tissue which is entirely submitted in cassette 1A. 2). The specimen is sublabeled "random colon" and consists of 2 portions of tissue which aggregate to 0.3 x 0.2 x 0.2 CM. The specimen is entirely submitted in cassette 2A. 3). The specimen is sublabeled "50 CM colon" and consists of 4 portions of tissue which aggregate to 0.4 x 0.4 x 0.2 CM. The specimen is entirely submitted in cassette 3A. 09/22/2016 [facility] MICRO DESCRIPTION: See diagnosis. ICD-9 CODES: CPT CODES: 1: 14857 2: 50293 3: 17122 Electronically Signed Out Dario Newman MD [facility] Pathology [facility] [address], [place] [address] Technical component performed at [facility], [address], [place], [address]
--- NOTE | 2016-09-23 10:57 | PCM.PNMED ---
Subjective Date of Service September 23, 2016 Subjective GI progress note Patient states she is doing better this morning. Denies ongoing left-sided abdominal pain but still has some discomfort in the right lower quadrant consistent with her previous pain from a ureteral stent. Denies review of systems. Exam Vital Signs Vital Sign - Last Date Time Temp Pulse Resp B/P Pulse Ox O2 Delivery O2 Flow Rate FiO2 09/23/16 04:52 36.4 68 16 152/79 98 Room Air Intake and Output 09/22/16 09/22/16 09/23/16 Cumulative From/Thru 15:00 23:00 07:00 09/15/16 16:48 - 09/23/16 06:32 Intake Total 2227 ml 662 ml 99564 ml Output Total 900 ml 550 ml 05522 ml Balance 1327 ml 112 ml 2593 ml Intake Oral 1200 ml 200 ml 58556 ml IV Total 1027 ml 462 ml 9235 ml Output Urine Total 900 ml 550 ml 35638 ml Stool Total 900 ml Urine/Stool Mix 4800 ml # Voids 6 # Bowel Movements 22 Exam Gen: AOx3; NAD Cardio: RRR with systolic murmur noted Resp: CTA bilaterally Abdominal: soft, non-distended, mildly tender on left and moderately tender on right; Ext: no edema or signs of cyanosis Psych: moderately anxious IVs and Medications Medications Reviewed: Medications were reviewed in detail Lab and Diagnostics Result Diagram: 09/22/16 0632 09/21/16 0830 X-Rays, CTs and MRIs Date of Service: 09/15/16 1708 PROCEDURE: CT ABDOMEN AND PELVIS WITH CONTRAST (PNL-7102) INDICATIONS: Abd pain, ho colitis IMPRESSION: 1. Obstructing 14 x 10 mm proximal right ureteral calculus with right-sided hydronephrosis. Several smaller nonobstructing right renal calculi are also present. 2. Severe bilateral hip degenerative change. Right hip effusion. Dictated by: Tristin Fiore M.D. on 09/15/2016 at 19:31 Approved by: Tristin Fiore M.D. on 09/15/2016 at 19:37 Caution: Report not yet finalized and possibly incomplete! PROCEDURE: X-RAY RETROGRADE UROGRAPHY IMPRESSION: Moderate right hydronephrosis with multiple intraluminal filling defects related to stonea seen on recent CT. Dictated by: Dale Maki RRA Interpreted: Anh Nguyen MD on 09/16/2016 at 11: 47 Transcribed by: JAD on 09/16/2016 at 11:48 Assessment & Plan Assessment 76 year old female who presented to the hospital with sharp abdominal pain and recent hematochezia. Ureteral stones were identified and stents were placed by urology which reduced the patients abdominal pain. GI was consulted to evaluate the hematochezia. Pt reports history of ulcerative colitis diagnosed 5 years ago by colonoscopy, however, she was unable to characterize her disease and no records are available. Patient underwent colonoscopy 09/21/16 with findings consistent with left sided ulcerative colitis. Patient started on Rowasa and Solumedrol and continues to improve with no complaints of diarrhea or hematochezia. For further specifics please see the procedure note. Plan -Changed Solu-medrol 60mg iv 3 times a day to twice a day today; on discharge, patient should go home on 60 mg of prednisone daily for 1 month until follow-up - Lialda started as a hospital does not have it on formulary; patient should go home with a prescription - Continue Rowasa 6g hs per rectum - Advance diet to soft low residue; NO MILK OR LACTOSE - Encourage patient to keep a stool journal to monitor presence of blood and frequency of diarrhea We will continue to follow GI Prophylaxis: Not indicated VTE Prophylaxis: Sub-Q Heparin (Unfractionated) VTE Mechanical Devices: Venous Foot Pump Resuscitation Status: DNR/DNI:Do Not Resuscitate/Intubate Ugo Larose DO September 23, 2016 10:57 Plan We will continue to follow GI Prophylaxis: Not indicated VTE Prophylaxis: Sub-Q Heparin (Unfractionated) VTE Mechanical Devices: Venous Foot Pump Resuscitation Status: DNR/DNI:Do Not Resuscitate/Intubate Ugo Larose DO September 23, 2016 10:57
--- NOTE | 2016-09-23 12:42 | NUR ---
Social Work: Continued d/c planning / Readiness for d/c Data: Pt is on day 8 of hospitalization. EMR reviewed, pt discussed in rounds, states pt will very likely d/c tomorrow and requested REGISTERED APPRAISER set up transportation for her to get home. REGISTERED APPRAISER called [facility] [phone] and spoke with Cally and requested a flight for pt for 09/24. Pt is booked for a 3:50pm flight from [employer] to [facility]. Pt needs to arrive at [place] [employer] at 3:30pm. Per previous notes flight cost estimate is $269.50. [facility] needs pts payment information. REGISTERED APPRAISER will follow up with pt regarding this. REGISTERED APPRAISER will call [employer] [phone] on 09/24 in the morning to set up transportation for pt to get to [facility]. Per previous note, cost to pt will be about $110.00 from Hospital to [facility]. Plan: REGISTERED APPRAISER will meet with pt regarding payment information. REGISTERED APPRAISER will continue to follow. JENNIFER Canchola Addendum: 09/23/16 at 1629 by LAUREANO TAYLOR Pt called [facility] and gave them her payment information on REGISTERED APPRAISER cellphone with REGISTERED APPRAISER in room. JENNIFER Canchola
[2016-09-23] MEDS ORDERED: PRE20 PO (15:12)
--- NOTE | 2016-09-23 15:28 | PCM.PNMED ---
Subjective Date of Service September 23, 2016 Subjective Says overall feeling a lot more improved Exam Vital Signs Vital Sign - Last Date Time Temp Pulse Resp B/P Pulse Ox O2 Delivery O2 Flow Rate FiO2 09/23/16 04:52 36.4 68 16 152/79 98 Room Air Intake and Output 09/22/16 09/22/16 09/23/16 Cumulative From/Thru 15:00 23:00 07:00 09/15/16 16:48 - 09/23/16 06:32 Intake Total 2227 ml 662 ml 84487 ml Output Total 900 ml 550 ml 11779 ml Balance 1327 ml 112 ml 2593 ml Intake Oral 1200 ml 200 ml 50392 ml IV Total 1027 ml 462 ml 9235 ml Output Urine Total 900 ml 550 ml 18020 ml Stool Total 900 ml Urine/Stool Mix 4800 ml # Voids 6 # Bowel Movements 22 Exam General: Alert, Cooperative, No Acute Distress Head: Normal Eyes: Scleral Anicteric Mouth: Mucous Membr Moist/[place] Neck: Supple Chest & Lungs: Chest Wall Normal, Clear to auscultation bilat Cardiovascular: Regular Rate/Rhythm Pulses: NL carotid, radial, femoral, DP, PT Abdomen: Tender (mild and at right lower abd), Non-distended, Normoactive bowel tones, Soft Extremities: No cyanosis/clubbing/edema bilat Neurological: Grossly Neurologically Intact, Normal Speech IVs and Medications Medications Reviewed: Medications were reviewed in detail Lab and Diagnostics Result Diagram: 09/22/16 0632 09/21/16 0830 X-Rays, CTs and MRIs Date of Service: 09/15/16 1708 PROCEDURE: CT ABDOMEN AND PELVIS WITH CONTRAST ([id number]) INDICATIONS: Abd pain, ho colitis IMPRESSION: 1. Obstructing 14 x 10 mm proximal right ureteral calculus with right-sided hydronephrosis. Several smaller nonobstructing right renal calculi are also present. 2. Severe bilateral hip degenerative change. Right hip effusion. Dictated by: Tristin Fiore M.D. on 09/15/2016 at 19:31 Approved by: Tristin Fiore M.D. on 09/15/2016 at 19:37 Caution: Report not yet finalized and possibly incomplete! PROCEDURE: X-RAY RETROGRADE UROGRAPHY IMPRESSION: Moderate right hydronephrosis with multiple intraluminal filling defects related to stonea seen on recent CT. Dictated by: Dale Maki RRA Interpreted: Anh Nguyen MD on 09/16/2016 at 11: 47 Transcribed by: JAD on 09/16/2016 at 11:48 Assessment & Plan 76 y/o female with a hx of ulcerative colitis presents to the ED via EMS complaining of RUQ abdominal pain, onset two weeks ago. Symptoms of bloody diarrhea and vomiting were temporarily resolved with prednisone. Patient was found to have right hydronephrosis confirmed by CT abdomen. # Acute diarrhea on chronic. Present on admission. Ongoing - Unclear if it is a ulcerative colitis flare versus some other etiology. - Stool PCR negative - Appreciate GI consult. Will followup with recommendations - Post colonoscopy on 09/21 with findings consistent with left sided ulcerative colitis - Continue Solu-medrol and change to twice a day today; on discharge, should go home on 60 mg of prednisone daily for 1 month until follow-up - Lialda started as a hospital does not have it on formulary; patient should go home with a prescription - Continue Rowasa 6g hs per rectum - Advance diet to soft low residue; NO MILK OR LACTOSE - Encourage patient to keep a stool journal to monitor presence of blood and frequency of diarrhea # Acute right hydronephrosis due to right ureteral calculus, present on admission. - Appreciate urology consult. Will followup with recommendations - Post Cystoscopy with right-sided retrograde pyelogram and right-sided double- J stent placement on 09/16/[address] Amos - Oxycodone for moderate pain, IV morphine for severe pain, Tylenol for mild pain as needed - Per earlier notes possible Lithotripsy in [address] Silva as outpatient # Acute hypokalemia. present on admission. Resolved # Chronic ulcerative colitis, present on admission. - GI consult and plan as noted above # Chronic Arthritis. stable. - Continue with supportive care Dispo: Likely home tomorrow GI Prophylaxis: Not indicated VTE Prophylaxis: Sub-Q Heparin (Unfractionated) VTE Mechanical Devices: Venous Foot Pump Resuscitation Status: DNR/DNI:Do Not Resuscitate/Intubate Remigio Shook September 23, 2016 15:28
--- NOTE | 2016-09-23 15:40 | NUR ---
Urine Output/Anxiety Only 100cc hematuria observed from first 5 hours shift, no pain or urgency reported by patient. Bladder scan performed approx 1300 reveals 34mL urine. Findings discussed with doctor. Additional 175cc hematuria w/n hour and a half. Pt complains of mild rt. Flank pain (site of stone) but insists no medication intervention is necessary. IV fluids in place and encouraging oral intake. Anxious patient, concerned about availability of medication at her preferred pharmacy on [facility]. Patient anxiety levels appear to be decreased following discussion with charge nurse, says there are a lot of options, I guess. Plan is to confirm available scripts at pharmacy to tow picker on way home.
[2016-09-23] MEDS: 0.9% Sodium Chloride 1,000 ML IV SCH (17:35)
[2016-09-23 17:55] VITALS: BP 145/72; PULSE 87; RESP 16; O2SAT 97
[2016-09-23] MEDS: Codeine-APAP 30-300 mg Tablet PO PRN (22:44)
[2016-09-23] MEDS: MESALAMINE RECTAL SCH (22:59)
[2016-09-24 05:34] VITALS: BP 148/81; PULSE 59; RESP 18; O2SAT 97
--- NOTE | 2016-09-24 06:34 | NUR ---
Pain/GI/ Pt c/o pain at shoulders and knees 5-11/08, Oxycodone administered x2, codeine-apap administeredx1 per pt requests, k-pad at shoulders. Knee pain resolved, shoulder pain improved, tolerable, pt sleeping intermittently. No complains of abdominal or flank pain, or diarrhea, no n/v. [place]-tinged urine 930ml/12 hr night. A&OX3, VSS, afebrile Continue monitoring.
[2016-09-24] MEDS: MethylprednisoLONE Sodium Succinate 40 mg/mL Inj IV SCH (08:41)
--- NOTE | 2016-09-24 10:21 | PCM.PNMED ---
Subjective Date of Service September 24, 2016 Subjective GI progress note The patient continues to improve. This morning she says that she does not have abdominal pain except for some mild discomfort on the right lower quadrant. Has numerous questions about her medications and she will be taking after discharge and I wrote her GI medications on the board for her. H&H is stable the patient denies any hematochezia/melena Exam Vital Signs Vital Sign - Last Date Time Temp Pulse Resp B/P Pulse Ox O2 Delivery O2 Flow Rate FiO2 09/24/16 05:34 36.6 59 18 148/81 97 Room Air Intake and Output 09/23/16 09/23/16 09/24/16 Cumulative From/Thru 15:00 23:00 07:00 09/15/16 16:48 - 09/24/16 06:16 Intake Total 1313 ml 925 ml 20150 ml Output Total 425 ml 930 ml 54471 ml Balance 888 ml -5 ml 3476 ml Intake Oral 800 ml 300 ml 86060 ml IV Total 513 ml 625 ml 24087 ml Output Urine Total 425 ml 930 ml 86695 ml Stool Total 900 ml Urine/Stool Mix 4800 ml # Voids 6 # Bowel Movements 0 22 Exam Gen: AOx3; NAD Cardio: RRR with systolic murmur noted Resp: CTA bilaterally Abdominal: soft, non-distended, mildly tender on left and moderately tender on right; Ext: no edema or signs of cyanosis Psych: moderately anxious IVs and Medications Medications Reviewed: Medications were reviewed in detail Lab and Diagnostics Result Diagram: 09/22/16 0632 09/23/16 1545 X-Rays, CTs and MRIs Date of Service: 09/15/16 1708 PROCEDURE: CT ABDOMEN AND PELVIS WITH CONTRAST ([id number]) INDICATIONS: Abd pain, ho colitis IMPRESSION: 1. Obstructing 14 x 10 mm proximal right ureteral calculus with right-sided hydronephrosis. Several smaller nonobstructing right renal calculi are also present. 2. Severe bilateral hip degenerative change. Right hip effusion. Dictated by: Tristin Fiore M.D. on 09/15/2016 at 19:31 Approved by: Tristin Fiore M.D. on 09/15/2016 at 19:37 Caution: Report not yet finalized and possibly incomplete! PROCEDURE: X-RAY RETROGRADE UROGRAPHY IMPRESSION: Moderate right hydronephrosis with multiple intraluminal filling defects related to stonea seen on recent CT. Dictated by: Dale Maki RRA Interpreted: Anh Nguyen MD on 09/16/2016 at 11: 47 Transcribed by: JAD on 09/16/2016 at 11:48 Assessment & Plan Assessment 76 year old female who presented to the hospital with sharp abdominal pain and recent hematochezia. Ureteral stones were identified and stents were placed by urology which reduced the patients abdominal pain. GI was consulted to evaluate the hematochezia. Pt reports history of ulcerative colitis diagnosed 5 years ago by colonoscopy, however, she was unable to characterize her disease and no records are available. Patient underwent colonoscopy 09/21/16 with findings consistent with left sided ulcerative colitis. Patient started on Rowasa and Solumedrol and continues to improve with no complaints of diarrhea or hematochezia. For further specifics please see the procedure note. Plan - Changed Solu-medrol to prednisone 60mg by mouth daily until follow-up - Start Lialda 2.4 mg daily on discharge - Continue Rowasa 6g hs per rectum - Encourage patient to keep a stool journal to monitor presence of blood and frequency of diarrhea - Follow-up with GI in 2-4 weeks - GI will sign off. Thank you for allowing us to participate in the care of this patient GI Prophylaxis: Not indicated VTE Prophylaxis: Sub-Q Heparin (Unfractionated) VTE Mechanical Devices: Intermittant Pneumatic CD, Venous Foot Pump Resuscitation Status: DNR/DNI:Do Not Resuscitate/Intubate Attending Statement agree with assessment and plan above. ok to d/c home today. Ugo Larose DO September 24, 2016 10:21 Lio Bustillos MD September 24, 2016 11:00
[2016-09-24] MEDS ORDERED: MESA4KIT2 RECTAL (10:38)
[2016-09-24] MEDS ORDERED: MESA1.2T2 PO (10:38)
[2016-09-24] MEDS ORDERED: PRE20 PO (10:38)
[2016-09-24] MEDS ORDERED: OXYC1TAB24 PO (10:39)
--- NOTE | 2016-09-24 10:51 | PCM.DIMED ---
Discharge Instructions Date of Service September 24, 2016 Dates of Hospitalization September 15, 2016 at 21:18 Discharge Diagnosis Discharge Diagnosis # Acute on chronic ulcerative colitis exacerbation. Present on admission. Improving # Acute on chronic diarrhea due to underlying ulcerative colitis. Present on admission. Improved # Acute right hydronephrosis due to right ureteral calculus, present on admission. - Post Cystoscopy with right-sided retrograde pyelogram and right-sided double- J stent placement on 09/16/[address] Amos # Acute hypokalemia. present on admission. Resolved # Chronic Arthritis. stable. Diet Discharge Diet: Other ( soft low residue; NO MILK OR LACTOSE) Activity Discharge Activity: No restrictions Call your provider Call your provider for: Fever or Chills, Shortness of breath, Bleeding, Chest pain, Vomitting, Excessive diarrhea Patient Instructions Patient Instructions Seek immediate medical attention if any new or worsening signs or symptoms occur Keep a stool journal to monitor presence of blood and frequency of diarrhea Follow-up plan 1. Followup with primary care provider in 1 week 2. Followup with urology (Bonnie Madison PA-C) On Tuesday10/06/16 at [address] [address] 3. Followup with gastroenterology (Dr. Bustillos) on Tuesday10/18/16 at 9:[address] [address] Follow-up Provider: Lio Chan MD Follow-up with PCP in: 1 week Provider: Lio Bustillos MD Follow-up in: Other (Tuesday10/18/16 at 9:15 AM) Mid-level Provider (F9): Bonine Madison PA-C Follow-up with Mid-level in: Other (Tuesday10/06/16 at 2 PM) Remigio Shook September 24, 2016 10:51
--- NOTE | 2016-09-24 11:06 | NUR ---
Spoke with [facility] pharmacy and let them know I was sending fax for new patient to them, also sent patient's prescription card and demographics. Patient will be over to pickling machine operator medications around 1400. Copied prescriptions and gave originals back to the patient. Called [employer] [phone] and arranged for 1400 pickling machine operator in main lobby, noted stop at pharmacy on [facility]. Then they will be taking her to [facility] for flight to [facility] @ 1530. Updated POSITION CLASSIFICATION MANAGER and RN
[2016-09-24 11:18] VITALS: BP 163/86; PULSE 71; RESP 18; O2SAT 96
--- NOTE | 2016-09-24 12:35 | NUR ---
Social Work: Discharge Data: Pt is on day 9 of hospitalization. EMR reviewed. D/C orders are in. Medications and taxi set up by UR specialist, see her note. No further d/c planning needs at this time. TRAVEL MONEY ADVISOR will continue to follow if needs arise. Assessment: Pt who is independent at baseline. Plan: Pt will d/c home via [employer] at 2:00pm to [facility] at 3:30pm for a 3:50pm flight time. Pt will roll picker medications at pharmacy on way to airport. No further d/c planning needs at this time. TRAVEL MONEY ADVISOR will continue to follow if needs arise. JENNIFER Canchola
--- NOTE | 2016-09-24 13:59 | NUR ---
Discharge Pt d/c on wc by an aide at this time. Medicated for pain prior to leaving. Discharge info discussed with pt, all questions answered. All personal belongings left with pt. IV d/c. VSS. Pt meeting taxi down at main lobby to be transported to the airport for flight home. SW sent Rx over to pharmacy.
--- NOTE | 2016-09-24 14:12 | PCM.DC.MED ---
Discharge Summary Date of Service September 24, 2016 Dates of Hospitalization Date of Hospital Admission September 15, 2016 at 21:18 Date of Discharge: September 24, 2016 Providers: Admitting Physician: Isauro Ding MD Primary Care Physician: Lio Chan MD Attending Physician: Isauro Ding MD Diagnosis at Time of Discharge Diagnosis at Time of Discharge # Acute on chronic ulcerative colitis exacerbation. Present on admission. Improving # Acute on chronic diarrhea due to underlying ulcerative colitis. Present on admission. Improved # Acute right hydronephrosis due to right ureteral calculus, present on admission. - Post Cystoscopy with right-sided retrograde pyelogram and right-sided double- J stent placement on 09/16/[address] Amos # Acute hypokalemia. present on admission. Resolved # Chronic Arthritis. stable. Consultations 1. GI 2. Urology Procedures XRay, CTs & MRIs Date of Service: 09/15/16 1708 PROCEDURE: CT ABDOMEN AND PELVIS WITH CONTRAST ([id number]) IMPRESSION: 1. Obstructing 14 x 10 mm proximal right ureteral calculus with right-sided hydronephrosis. Several smaller nonobstructing right renal calculi are also present. 2. Severe bilateral hip degenerative change. Right hip effusion. Dictated by: Tristin Fiore M.D. on 09/15/2016 at 19:31 Approved by: Tristin Fiore M.D. on 09/15/2016 at 19:37 Invasive Procedures DATE OF SURGERY: 09/16/2016 PROCEDURE: Cystoscopy with right-sided retrograde pyelogram and right-sided double-J stent placement. SURGEON: MD Bette Smith Amy M MD 09/17/16 0858 OPERATION: Colonoscopy with biopsy. POSTOPERATIVE DIAGNOSIS: 1. Loss of architecture and vascularity with ulcerations from the rectum in continuous fashion to 50 cm from the anus status post biopsy most consistent with ulcerative colitis. 2. Everything proximal in the terminal ileum to 15 cm was normal, status post biopsy. IMPRESSION: Loss of architecture and vascularity with ulcerations from the rectum to 50 cm from the anus concerning for left-sided ulcerative colitis on biopsy. Lio Bustillos MD 09/21/16 7839 Other Diagnostics Date of Service: 09/16/16 1015 PROCEDURE: X-RAY RETROGRADE UROGRAPHY IMPRESSION: Moderate right hydronephrosis with multiple intraluminal filling defects related to stonea seen on recent CT. Dictated by: Dale Maki RRA Interpreted: Anh Nguyen MD on 09/16/2016 at 11: 47 Transcribed by: JAD on 09/16/2016 at 11:48 Approved by: Anh Nguyen M.D. on 09/17/2016 at 9:19 Brief History As noted in H&P by Dr. Colby: 76-year-old female with history of ulcerative colitis diagnosed 5 years ago and treated with mesalamine until 2 years ago presents to the emergency department via EMS helicopter from [facility] with severe right upper quadrant pain and recent symptoms consistent with UC flare. Patient states that approximately 2 weeks ago she noted some small amounts of blood in her stool with increasing abdominal pain. After couple days patient presented to her primary care doctor who prescribed her oral prednisone to control her flare. This treatment initially worked to control the bleeding and decrease some of her abdominal pain but a few days after starting the prednisone she had severe increase in her abdominal pain and presented to the ED with 9 out of 10 pain. Patient denies any fever associated with these events, chest pain, constipation, but does attest to diarrhea, and one episode of vomiting over the last week. Patient states that due to her abdominal pain she has been taking ibuprofen 600 mg 3 times a day for an extended period of time, possibly going back months or even a year. On presentation to the ED a CT of the abdomen showed an obstructing 14 x 10 mm right ureteral calculus with right hydronephrosis and patient underwent stenting by Dr. Amos with resolution of some of the patient's pain. Patient states that she is currently having diarrhea but denies any hematochezia/ melena. She denies fevers, chills, nausea, vomiting, chest pain, but states that she still does have some abdominal pain. She states that currently this does not feel like it previous ulcerative colitis flare. Patient states that ulcerative class was diagnosed 5 years ago 2 to hematochezia and abdominal pain with flex sigmoidoscopy. Patient states that this was followed by colonoscopy was unable to relate the results by colonoscopy we do not know this is pancolitis or not. Patient was placed on mesalamine discontinued this medication 2 years ago and states that she has not had a flare since. Hospital Course # Acute diarrhea on chronic. Present on admission. Ongoing - Unclear if it is a ulcerative colitis flare versus some other etiology. - Stool PCR negative - Appreciate GI consult. - Post colonoscopy on 09/21 with findings consistent with left sided ulcerative colitis - Treated with 2 days of IV Solu-medrol and changed to oral prednisone by day of discharge - Lialda - Continue Rowasa 6g hs per rectum - Advanced diet to soft low residue; NO MILK OR LACTOSE - Encouraged patient to keep a stool journal to monitor presence of blood and frequency of diarrhea # Acute right hydronephrosis due to right ureteral calculus, present on admission. - Appreciate urology consult. - Post Cystoscopy with right-sided retrograde pyelogram and right-sided double- J stent placement on 09/16/[address] Amos - Per earlier notes possible Lithotripsy in [address] Silva as outpatient # Acute hypokalemia. present on admission. Resolved # Chronic ulcerative colitis, present on admission. - GI consult and plan as noted above # Chronic Arthritis. stable. - Continue with supportive care Exam Vital Signs (Last) Date Time Temp Pulse Resp B/P Pulse Ox O2 Delivery O2 Flow Rate FiO2 09/24/16 11:18 36.9 71 18 163/86 96 Room Air Exam General: Alert, Cooperative, No Acute Distress Head: Normal Eyes: Scleral Anicteric Mouth: Mucous Membr Moist/[place] Neck: Supple Chest & Lungs: Chest Wall Normal, Clear to auscultation bilat Cardiovascular: Regular Rate/Rhythm Pulses: NL carotid, radial, femoral, DP, PT Abdomen: Non-Tender, Non-distended, Normoactive bowel tones, Soft Extremities: No cyanosis/clubbing/edema bilat Neurological: Grossly Neurologically Intact, Normal Speech Test 09/15/16 17:00 09/15/16 17:49 09/20/16 08:25 09/22/16 06:32 Lactic Acid Level 0.9mmol/L (0.4-2.0) Total Bilirubin 0.4mg/dL (0.0-1.2) Aspartate Amino Transf (AST/SGOT) 21U/L (0-50) Alanine Aminotransferase (ALT/SGPT) 28U/L (0-32) Alkaline Phosphatase 112U/L (25-165) Troponin T < 0.010ug/L (0.0-0.011) Total Protein 6.4g/dL (6.4-8.4) Albumin 3.3g/dL (3.4-5.0) Lipase 29U/L (13-60) Urine Color Straw (YELLOW) Urine Appearance Clear (CLEAR,HAZY) Urine pH 7.0 (5.0-8.0) Urine Specific [place] 1.010 (1.003-1.035) Urine Protein Negativemg/dL (NEG,TRACE) Urine Glucose (UA) Negativemg/dL (NEGATIVE) Urine Ketones Negativemg/dL (NEGATIVE) Urine Occult Blood Trace (NEGATIVE) Urine Nitrite Negative (NEGATIVE) Urine Bilirubin Negative (NEGATIVE) Urine Urobilinogen Normalmg/dL (NORMAL) Urine Leukocyte Esterase Moderate (NEGATIVE) Urine RBC 0-2/hpf (0-2) Urine WBC 6-10/hpf (0-5) Urine Epithelial Cells Occasional/hpf (NONE-MOD) Urine Crystals None seen (NONE SEEN) Urine Bacteria None/hpf (NONE-FEW) Urine Hyaline Casts None/lpf (NONE) Urine Granular Casts None seen (NONE SEEN) Urine Waxy Casts None seen (NONE SEEN) Urine Red Blood Cell Casts None seen (NONE SEEN) Urine White Blood Cell Casts None seen (NONE SEEN) Urine Mucus None seen (None Seen) Urine Trichomonas None seen (NONE SEEN) Urine Yeast None (NONE SEEN) Urinalysis Comment None Urine Culture Reflexed Indicated Neutrophils (%) (Auto) 64.2% (40-74) Lymphocytes (%) (Auto) 8.3% (14-46) Monocytes (%) (Auto) 25.7% (4-12) Eosinophils (%) (Auto) 1.2% (0-5) Basophils (%) (Auto) 0.3% (0-3) Magnesium Level 1.6mg/dL (1.6-2.6) White Blood Count 2.4th/mm3 (3.8-10.1) Red Blood Count 3.82mil/mm3 (3.90-5.20) Hemoglobin 8.9g/dL (12.0-15.6) Hematocrit 28.3% (35.0-46.0) Mean Corpuscular Volume 74.1fL (81-100) Mean Corpuscular Hemoglobin 23.3pg (27.0-35.0) Mean Corpuscular Hemoglobin Concent 31.4% (32.0-37.0) Red Cell Distribution Width 16.6% (12.3-15.4) Platelet Count 224bil/L (150-400) Test 09/23/16 15:45 Sodium Level 135mEq/L (134-144) Potassium Level 3.6mEq/L (3.5-5.2) Chloride Level 100mEq/L (97-108) Carbon Dioxide Level 20mmol/L (18-29) Blood Urea Nitrogen 15mg/dL (8-27) Creatinine 0.85mg/dL (0.57-1.00) Estimat Glomerular Filtration Rate 94mL/min (>59) Glucose Level 150mg/dL (60-99) Calcium Level 8.5mg/dL (8.5-10.1) Discharge Medications Discharge Medications Mesalamine (Lialda) 1.2 Gm Tablet.dr 2.4 GM PO DAILY Prescribed by: NOMAN KEITH MD Mesalamine W/Cleansing Wipes (Rowasa 4 gm/60 ml Enema Kit) 4 Gm/60 Ml Kit 6 GM RECTAL HS Prescribed by: NOMAN KEITH MD Prednisone (PredniSONE) 20 Mg Tablet 60 MG PO DAILY Prescribed by: NOMAN KEITH MD As needed oxyCODONE (oxyCODONE) 5 Mg Tablet 5 MG PO Q4H PRN PRN For Moderate Pain Prescribed by: ALEXANDER SWARTZ DO oxyCODONE-Acetaminophen 5-325 mg (oxyCODONE-Acetaminophen 5-325 mg) 1 Each Tablet 1-2 TAB PO Q6H PRN PRN For Pain Prescribed by: NOMAN KEITH MD Followup Plan Disposition: Home Follow-up plan 1. Followup with primary care provider in 1 week 2. Followup with urology (Bonnie Madison PA-C) On Tuesday10/06/16 at [address] [id number] 3. Followup with gastroenterology (Dr. Bustillos) on Tuesday10/18/16 at 9:15 AM [facility] [address] [place] [address] Discharge Diet: Other ( soft low residue; NO MILK OR LACTOSE) Discharge Activity: No restrictions Patient Instructions Seek immediate medical attention if any new or worsening signs or symptoms occur Keep a stool journal to monitor presence of blood and frequency of diarrhea Follow-up Provider: Lio Chan MD Follow-up with PCP in: 1 week Provider: Lio Bustillos MD Follow-up in: Other (Tuesday10/18/16 at 9:15 AM) Mid-level Provider: Bonnie Madison PA-C Follow-up with Mid-level in: Other (Tuesday10/06/16 at 2 PM) Time spent 35 min copies to: Suzy Silva MD; Lio Bustillos MD; Lio Chan MD; Bonnie Madison PA-C, Masoud September 24, 2016 14:12
[2016-10-12] MEDS ORDERED: ACET325T51 PO (12:46)
== END 2016-09-24 14:02 | disposition home or self-care (01) | DRG 694 ==
LOC: SED 16:40 → MPC 21:18
PROVIDERS: ADMIT Hospitalist; ATTEND Hospitalist
PROC: BT1D1ZZ Fluoroscopy of Right Kidney, Ureter and Bladder using Low Osmolar Contrast (ICD-10-PCS; 2016-09-16)
PROC: 0T768DZ Dilation of Right Ureter with Intraluminal Device, Via Natural or Artificial Opening Endoscopic (ICD-10-PCS; principal; 2016-09-16 10:00)
PROC: 0DBP8ZX Excision of Rectum, Via Natural or Artificial Opening Endoscopic, Diagnostic (ICD-10-PCS; 2016-09-21 16:00)
PROC: 0DBB8ZX Excision of Ileum, Via Natural or Artificial Opening Endoscopic, Diagnostic (ICD-10-PCS; 2016-09-21 16:00)
DX: N13.2 Hydronephrosis with renal and ureteral calculous obstruction (principal); K51.50 Left sided colitis without complications; K92.1 Melena; Z87.820 Personal history of traumatic brain injury; Z66 Do not resuscitate; M19.90 Unspecified osteoarthritis, unspecified site; E87.6 Hypokalemia

== ENCOUNTER 2016-10-14 05:54 | Day surgery (SDC) | payer MEDICARE, OTHER ==
[2016-10-14] VITALS (8 sets, daily range): BP systolic 110–139; BP diastolic 61–74; PULSE 65–71; RESP 9–19; O2SAT 97–100
[~2016-10-14] VITALS: Ht 162.6 cm; Wt 58.7 kg
[~2016-10-14 05:54] MED LIST: ACET325T51 PO; MESA1.2T2 PO; MESA4KIT2 RECTAL; PRE20 PO
[2016-10-14] MEDS ORDERED: MetoCLOpramide 5 mg/mL 2 mL Inj ONE (05:55)
[2016-10-14] MEDS ORDERED: Propofol 10,000 mCg/mL 20 mL Inj ONE (05:55)
[2016-10-14] MEDS ORDERED: Dexamethasone 4 mg/mL Inj ONE (05:55)
[2016-10-14] MEDS ORDERED: Ondansetron 2 mg/mL 2 mL Inj ONE (05:55)
[2016-10-14] MEDS ORDERED: Levofloxacin 500 mg/100 mL D5W IV ONE (06:00)
[2016-10-14] MEDS: Lactated Ringer's 1,000 ML IV SCH ×2 (06:37→07:29)
--- NOTE | 2016-10-14 07:21 | PCM.HPANE ---
Patient Data Surgeon Admitting Provider: Attending Provider:Suzy Silva MD Primary Care Physician:Lio Chan MD Other Provider:Susan Cadetingham Anesthesia Reason for Visit Right Ureteral Stone Ht/WT & BMI Height (Feet): 5 Height (Inches): 4 Weight (Kilograms): 58.7 Body Mass Index 22.00 Allergies Coded Allergies: Sulfa (Sulfonamide Antibiotics) (Verified Allergy, Mild, nauesa, 09/15/16) Penicillins (Verified Allergy, Unknown, not sure. my mom is allergic, 10/14) Past Anesthesia History Anesthesia History: Denies:: Abnormal Airway, Anesthesia Reactions, Difficult Intubation, Fam Anesthesia Reaction, Fam Malignant Hypertherm, Malignant Hyperthermia Diabetes History Hx Diabetes?: No MRSA MRSA: No Medications Home Meds Incl Beta Lilian: No Active Scripts Mesalamine (Lialda)1.2 Gm Tablet.dr2.4 Gm PO DAILY #60 TABLET Prov:Remigio Shook 09/24/16 Mesalamine W/Cleansing Wipes (Rowasa 4 gm/60 ml Enema Kit)4 Gm/60 Ml Kit6 Gm RECTAL HS 30 Days Prov:Remigio Shook 09/24/16 Prednisone (PredniSONE)20 Mg [id number] Mg PO DAILY #90 TABLET Ref 0 Prov:Remigio Shook 09/24/16 Reported Medications Acetaminophen 325 Mg [id number] Mg PO Q4H PRN For Pain Ref 0 10/12/16 Discontinued Scripts oxyCODONE-Acetaminophen 5-325 mg 1 Each Tablet1-2 Tab PO Q6H PRN For Pain #20 TABLET Ref 0 Prov:Remigio Shook 09/24/16 oxyCODONE 5 Mg Tablet5 Mg PO Q4H PRN For Moderate Pain #20 TABLET Prov:Ale Manuel DO 09/17/16 History History of ENT Problems?: Yes HEENT History: Denies:: Abnormal Airway Cataracts Difficult Intubation Dysphagia Hearing Problem Sinus Problem TMJ Denture Type: None Teeth Condition: Within Normal Limits Hx of Heart Problems?: No Cardiovascular History: Denies:: AICD Abdominal Aortic Aneurism Atrial Fibrillation Cardiac Surgery Chest Pain Congestive Heart Failure Edema Heart Murmur Hypertension Irregular Heartbeat Pacemaker Rheumatic Fever Thrombophlebitis Valvular Heart Disease Hx of Respiratory Problem?: No Respiratory History: Denies:: Asthma COPD Chest Surgery Cough Dyspnea Emphysema Hemoptysis Oxygen Administration Pneumonia Pulmonary Embolism Tuberculosis Use of C-PAP Machine Hx Neurologic Problems?: Yes Other Neurological Pertinent: 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 Pt has planned colonoscopy on 10/18/16 Hx of Problems?: Yes Genitourinary History: Positive for:: Kidney Stones (right - current admission problem) Other Pertinent History: cysto with stent placed- 09/16/16 Female Hx: Denies:: Currently Endometriosis Pelvic Inflammatory Problems with Breasts? Skin History: Denies:: History Skin Disorders? Pressure Ulcers Hx Musculoskeletal Problems?: Yes Musculoskeletal History: Positive for:: Back Injury (spinal stenosis, hx scoliosis) Musculoskeletal Trauma (traumatic brain injury and cervical injury from a fall in 1991) Osteoarthritis (bilateral hip, right hip effusion noted 08/2016) Denies:: Joint Replacement Hx of Psycho/Social Problems?: No Hx Surgeries?: Yes (neurosurgery, rt.thumb, facial sry, appendectomy, colonoscopy) Hx Any Other Health Problems?: Yes Other History: Positive for:: Hospitalization Denies:: Cancer Thyroid Disease History Blood Transfusions: Positive for:: Blood Transfusions (some "blood product") Hx Diabetes: No Hx Alcohol Use: Yes ("very seldom")Hx Substance Use: No Smoking Status: Never Smoker Have You Smoked inLast 12 mo: Yes (5-6 cig daily) Stop/Bang Treated for Sleep Apnea?: No Do You Have a CPAP Machine?: No S-Snoring: Do You Snore Loudly: No T-Tired: feel tired, fatigued: No O-Obsered: Observed not breath: No P-Blood Pressure: treated: No B- Body Mass Index > 35 kg/m2: No A- Age over 50: Yes N- Neck Large Circumference: No G- Gender Male: No SMITH Total Score: 1 SMITH Risk Assessment: Low Risk, <3 Yes Risk Assessment Category Category 1A: Patient has history of documented sleep apnea, and HAS NOT received any narcotic, sedative or anesthesia administration during this stay. Category 1B: Patient has history of documented sleep apnea, and HAS received any narcotic , sedative or anesthesia administration during this stay Category 2: Patient has SUSPECTED Obstructive Sleep Apnea, and HAS received any narcotic , sedative or anesthesia administration during this stay. Category 3: Patient has SUSPECTED Obstructive Sleep Apnea and HAS NOT received narcotic, sedative or anesthesia administration during this stay. Category 4: Outpatient in Procedural Areas with known sleep apnea or who screen positive for High Risk via the STOP/BANG questionnaire. Exam Exam Vital Signs Vital Signs Date Time Temp Pulse Resp B/P Pulse Ox O2 Delivery O2 Flow Rate FiO2 10/14/16 06:52 36 67 18 139/70 99 Room Air General Appearance: Oriented X3 HEENT/AIRWAY: MP 2 Lungs: Normal Air Movement Heart: Regular Rate/Rhythm Meds/Labs/Diagnostics Admission Meds Current Medications Lactated Ringer's (Lr) 1,000 ml @ 120 mls/hr Q8H20M IV Last administered on t 06:37; Start 10/14/16 at 05:00; Stop 10/14/16 at 13:19 Plan Impression Patient chart reviewed, patient interviewed and anesthestic plan with risks, benefits, and alternatives discussed, and informed consent obtained. ASA Physical Status: ASA2 Mod Systemic Disease Anesthetic Plan: GA Bene/Risks/Altern/Consents: Yes HP Complete Prior to Induction: Yes Raúl Vaca MD Oct 14, 2016 07:21
[2016-10-14] MEDS ORDERED: Lactated Ringer's 1,000 ML IV SCH (07:54)
[2016-10-14] MEDS ORDERED: Lactated Ringer's 500 ML IV PRN (07:54)
[2016-10-14] MEDS ORDERED: fentaNYL-PF 50 mCg/mL 2 mL Inj IVPUSH PRN (07:55)
[2016-10-14] MEDS ORDERED: Labetalol 5 mg/mL 4 mL Inj IV PRN (07:55)
[2016-10-14] MEDS ORDERED: MetoCLOpramide 5 mg/mL 2 mL Inj IVPUSH PRN (07:55)
[2016-10-14] MEDS ORDERED: Ondansetron 2 mg/mL 2 mL Inj IVPUSH PRN (07:55)
[2016-10-14] MEDS ORDERED: HYDROmorphone 1 mg/mL Inj IVPUSH PRN (07:55)
[2016-10-14] MEDS ORDERED: Dexamethasone 4 mg/mL Inj IVPUSH PRN (07:55)
[2016-10-14] MEDS ORDERED: Phenylephrine 10,000 mCg/mL Inj IVPUSH PRN (07:55)
[2016-10-14] MEDS ORDERED: EPHEDrine Sulfate 50 mg/mL Inj IVPUSH PRN (07:55)
[2016-10-14] MEDS ORDERED: Ondansetron 8 mg ODT Tablet PO PRN (08:00)
[2016-10-14] MEDS ORDERED: HYDROcodone-APAP 5-325 mg Tablet PO PRN (08:00)
[2016-10-14] MEDS ORDERED: Belladonna Alk-Opium 60 mg Rectal Suppository RECTAL PRN (08:00)
--- NOTE | 2016-10-14 08:57 | OP ---
[address] [address] OPERATIVE REPORT PATIENT: CLARITA CHEATHAM : 1940 MR#: [id number] ADMIT: 10/14/2016 JOB ID: [id number] DATE OF SURGERY: 10/14/2016 SURGEON: Suzy Silva M.D. PREOPERATIVE DIAGNOSIS(ES): Right renal calculus. POSTOPERATIVE DIAGNOSIS(ES): Right renal calculus. PROCEDURE: Right ESWL. ANESTHESIA: General anesthetic, Dr. Vaca. DESCRIPTION OF PROCEDURE: Under general anesthetic, the patient was placed in the supine position. The stone was localized with fluoroscopy without difficulty. A total of 2500 shocks were delivered to the stone with good radiographic fragmentation. The patient tolerated the procedure well, left the operating room in good condition.
--- NOTE | 2016-10-14 09:08 | PCM.ANEP1 ---
Post Anesthesia PACU Phase 1 Assessment Vital Signs Vital Signs Date Time Temp Pulse Resp B/P Pulse Ox O2 Delivery O2 Flow Rate FiO2 10/14/16 09:00 68 15 129/70 98 Room Air 10/14/16 08:55 36.4 69 18 131/74 97 Room Air 10/14/16 08:50 70 17 139/68 99 Room Air 10/14/16 08:45 36.7 70 19 135/70 98 Room Air 10/14/16 08:40 71 18 125/62 99 Room Air 10/14/16 08:35 66 11 121/64 99 Room Air 10/14/16 08:30 36.1 65 9 110/61 100 Simple Mask 8 10/14/16 06:52 36 67 18 139/70 99 Room Air Anesthetic Administered: GA Level of Alertness: Awake, talking Pain: No Nausea or Vomiting: No CV Function & Hydration Stable: Yes Airway Device: Lungs: Normal Air Movement PACU Phase 2 Assessment Patient Instructions Provided: N/A Raúl Vaca MD Oct 14, 2016 09:08
--- NOTE | 2016-10-14 16:54 | DRSVH ---
PROCEDURE: X-RAY KUB ([id number]) INDICATIONS: RIGHT URETERAL STONE TECHNIQUE: One view of the abdomen acquired. COMPARISON: [facility], CT, CT ABD PELVIS W CON, 09/15/2016, 19:06. FINDINGS: Surgical changes and devices: Right ureteral stent present. Bowel: Bowel gas pattern is normal. Soft tissues: 1.9 cm calcification projected over the right renal pelvis. Bones: No suspicious bony lesions. Severe bilateral hip joint degeneration with flattening of the f emoral heads and avascular necrosis cannot be excluded. Correlate clinically. IMPRESSION: 1. Right ureteral stent in expected position and 1.9 cm calcification projected over the right renal pelvis. Dictated by: Dale VAUGHN Interpreted: Anh Nguyen MD on 10/14/2016 at 9:08 Approved by: Anh Nguyen M.D. on 10/14/2016 at 16:52
== END 2016-10-14 23:59 | disposition home or self-care (01) ==
LOC: SAS 05:54
PROVIDERS: ATTEND Urology
DX: N20.1 Calculus of ureter (principal); M19.90 Unspecified osteoarthritis, unspecified site; F17.210 Nicotine dependence, cigarettes, uncomplicated
CPT/HCPCS: 50590; 74000; J1100; J2405; J2765; J7120

== ENCOUNTER → 2016-12-24 | Day surgery (SDC) | payer MEDICARE, OTHER ==
[2016-12-24] VITALS (9 sets, daily range): BP systolic 132–162; BP diastolic 65–98; PULSE 70–79; RESP 14–16; O2SAT 94–100
[~2016-12-24] VITALS: Ht 162.6 cm; Wt 61.0 kg
[~2016-12-24] MED LIST changes: +Atropine 0.4 mg/mL Inj IVPUSH PRN; +Belladonna Alk-Opium 60 mg Rectal Suppository RECTAL ONE; +Dexamethasone 4 mg/mL Inj ONE; +EPHEDrine Sulfate 50 mg/mL Inj IVPUSH PRN; +Labetalol 5 mg/mL 20 mL Inj IV PRN; +Lactated Ringer's 1,000 ML IV SCH; +Lactated Ringer's 500 ML IV PRN; +Levofloxacin 500 mg/100 mL D5W IV ONE; +MetoCLOpramide 5 mg/mL 2 mL Inj ONE; +Ondansetron 2 mg/mL 2 mL Inj IVPUSH PRN; +Ondansetron 2 mg/mL 2 mL Inj ONE; +Ondansetron 8 mg ODT Tablet PO PRN; +PRD5T PO; -PRE20 PO; +Phenazopyridine 97.5 mg Tablet PO PRN; +Phenylephrine 10,000 mCg/mL Inj IVPUSH PRN; +Phenylephrine/NS 100 mCg/mL 10 mL Syringe IVPUSH ONE; +Propofol 10,000 mCg/mL 20 mL Inj ONE; +Rocuronium 10 mg/mL 5 mL Inj ONE; +fentaNYL-PF 50 mCg/mL 2 mL Inj IVPUSH PRN; +fentaNYL-PF 50 mCg/mL 2 mL Inj ONE; +levoFLOXacin 500 mg/100 mL D5W Premix IV ONE
[2016-12-24] MEDS: Lactated Ringer's 1,000 ML IV SCH ×2 (05:52→13:27)
[2016-12-24 11:25] LABS: APPEARANCE,URINE SLIGHTLY CLOUDY (CLEAR,HAZY); COLOR,URINE RED (YELLOW)
[2016-12-24 11:26] LABS: OCCULT BLOOD,URINE LARGE (NEGATIVE); UROBILINOGEN,URINE NORMAL (NORMAL)
--- NOTE | 2016-12-24 13:30 | PCM.HPANE ---
Patient Data Surgeon Admitting Provider: Attending Provider:Destiny Amos MD Primary Care Physician:Lio Chan MD Other Provider:Susan Cadetingham Anesthesia Reason for Visit Right Kidney Stone Ht/WT & BMI Height (Feet): 5 Height (Inches): 4.00 Weight (Kilograms): 61.0 Body Mass Index 22.00 Allergies Coded Allergies: Sulfa (Sulfonamide Antibiotics) (Verified Allergy, Mild, nauesa, 09/15/16) Penicillins (Verified Allergy, Unknown, not sure. my mom is allergic, 10/14) Past Anesthesia History Anesthesia History: Denies:: Abnormal Airway, Anesthesia Reactions, Difficult Intubation, Fam Anesthesia Reaction, Fam Malignant Hypertherm, Malignant Hyperthermia Diabetes History Hx Diabetes?: No MRSA MRSA: No Medications Home Meds Incl Beta Lilian: No Active Scripts Mesalamine (Lialda)1.2 Gm Tablet.dr2.4 Gm PO DAILY #60 TABLET Prov:Remigio Shook 09/24/16 Mesalamine W/Cleansing Wipes (Rowasa 4 gm/60 ml Enema Kit)4 Gm/60 Ml Kit6 Gm RECTAL HS 30 Days Prov:Remigio Shook 09/24/16 Reported Medications Prednisone (PredniSONE)5 Mg Tab5 Mg PO DAILY Ref 0 12/22/16 Acetaminophen 325 Mg [id number] Mg PO Q4H PRN For Pain Ref 0 10/12/16 Discontinued Scripts Prednisone (PredniSONE)20 Mg [id number] Mg PO DAILY #90 TABLET Ref 0 Prov:Remigio Shook 09/24/16 History History of ENT Problems?: Yes HEENT History: Denies:: Abnormal Airway Cataracts Difficult Intubation Dysphagia Hearing Problem Sinus Problem TMJ Denture Type: None Teeth Condition: Within Normal Limits Hx of Heart Problems?: No Cardiovascular History: Denies:: AICD Abdominal Aortic Aneurism Atrial Fibrillation Cardiac Surgery Chest Pain Congestive Heart Failure Coronary Artery Disease Edema Heart Murmur Hypertension Irregular Heartbeat Pacemaker Peripheral Vascular Rheumatic Fever Thrombophlebitis Valvular Heart Disease Hx of Respiratory Problem?: No Respiratory History: Denies:: Asthma COPD Chest Surgery Cough Dyspnea Emphysema Hemoptysis Oxygen Administration Pneumonia Pulmonary Embolism Tuberculosis Use of C-PAP Machine Hx Neurologic Problems?: Yes Hx of GI Problems?: Yes Hx of Problems?: Yes Genitourinary History: Positive for:: Kidney Stones (right - current admission problem, surg here 10/16) HX of Peritoneal Dialysis: No Female Hx: Denies:: Currently Endometriosis Pelvic Inflammatory Problems with Breasts? Skin History: Denies:: History Skin Disorders? Pressure Ulcers Hx Musculoskeletal Problems?: Yes Musculoskeletal History: Positive for:: Back Injury (spinal stenosis, hx scoliosis) Musculoskeletal Trauma (traumatic brain injury and cervical injury from a fall in 1991) Osteoarthritis ("acute") Denies:: Joint Replacement Hx of Psycho/Social Problems?: No Hx Surgeries?: Yes (neurosurgery, rt.thumb, facial sry, appendectomy, colonoscopy) Hx Any Other Health Problems?: Yes Other History: Positive for:: Hospitalization Denies:: Cancer Thyroid Disease History Blood Transfusions: Positive for:: Blood Transfusions (some "blood product") Hx Diabetes: No Hx Alcohol Use: Yes ("very seldom")Hx Substance Use: No Smoking Status: Never Smoker Have You Smoked inLast 12 mo: Yes (5-6 cig daily) Stop/Bang P-Blood Pressure: treated: No B- Body Mass Index > 35 kg/m2: No A- Age over 50: Yes N- Neck Large Circumference: No G- Gender Male: No Risk Assessment Category Category 1A: Patient has history of documented sleep apnea, and HAS NOT received any narcotic, sedative or anesthesia administration during this stay. Category 1B: Patient has history of documented sleep apnea, and HAS received any narcotic , sedative or anesthesia administration during this stay Category 2: Patient has SUSPECTED Obstructive Sleep Apnea, and HAS received any narcotic , sedative or anesthesia administration during this stay. Category 3: Patient has SUSPECTED Obstructive Sleep Apnea and HAS NOT received narcotic, sedative or anesthesia administration during this stay. Category 4: Outpatient in Procedural Areas with known sleep apnea or who screen positive for High Risk via the STOP/BANG questionnaire. Exam Exam Vital Signs Vital Signs Date Time Temp Pulse Resp B/P Pulse Ox O2 Delivery O2 Flow Rate FiO2 12/24/16 11:06 36.4 76 16 162/73 98 Room Air General Appearance: Alert, Oriented X3, Cooperative, No Acute Distress HEENT/AIRWAY: MP 2, Neck Movement (FROM), Mouth Opening (3 FBMO) Lungs: Clear to Auscultation, Normal Air Movement Heart: Exam Unremarkable, Regular Rate/Rhythm, No Murmurs/Rubs/Gallops Meds/Labs/Diagnostics Admission Meds Current Medications Lactated Ringer's (Lr) 1,000 ml @ 120 mls/hr Q8H20M IV Last administered on t 05:52; Start 12/24/16 at 05:00; Stop 12/24/16 at 13:19 Labs Test 12/24/16 10:47 Urine Color Red (YELLOW) Urine Appearance Slightly cloudy Urine pH 6.0 (5.0-8.0) Urine Specific [place] 1.020 (1.003-1.035) Urine Protein 100mg/dL (NEG,TRACE) Urine Glucose (UA) Negativemg/dL (NEGATIVE) Urine Ketones Negativemg/dL (NEGATIVE) Urine Occult Blood Large (NEGATIVE) Urine Nitrite Negative (NEGATIVE) Urine Bilirubin Negative (NEGATIVE) Urine Urobilinogen Normalmg/dL (NORMAL) Urine Leukocyte Esterase Moderate (NEGATIVE) Urine RBC Packed/hpf (0-2) Urine WBC 0-5/hpf (0-5) Urine Epithelial Cells Occasional/hpf (NONE-MOD) Urine Crystals None seen (NONE SEEN) Urine Bacteria None/hpf (NONE-FEW) Urine Hyaline Casts None/lpf (NONE) Urine Granular Casts None seen (NONE SEEN) Urine Waxy Casts None seen (NONE SEEN) Urine Red Blood Cell Casts None seen (NONE SEEN) Urine White Blood Cell Casts None seen (NONE SEEN) Urine Mucus None seen (None Seen) Urine Trichomonas None seen (NONE SEEN) Urine Yeast None (NONE SEEN) Urinalysis Comment None Urine Culture Reflexed Indicated Plan Impression Patient chart reviewed, patient interviewed and anesthestic plan with risks, benefits, and alternatives discussed, and informed consent obtained. NPO per Anesth. Guidelines: Yes (2 small spoonfuls of yogurt for pills 6 hours prior to surgery) ASA Physical Status: ASA2 Mod Systemic Disease Anesthetic Plan: GA Bene/Risks/Altern/Consents: Yes HP Complete Prior to Induction: Yes Ugo Carlson MD Dec 24, 2016 11:56
--- NOTE | 2016-12-24 15:17 | PCM.ANEP1 ---
Post Anesthesia PACU Phase 1 Assessment Vital Signs Vital Signs Date Time Temp Pulse Resp B/P Pulse Ox O2 Delivery O2 Flow Rate FiO2 12/24/16 15:05 37.0 75 14 145/75 100 Simple Mask 8 12/24/16 15:03 74 16 136/73 100 Simple Mask 8 12/24/16 11:06 36.4 76 16 162/73 98 Room Air Anesthetic Administered: GA Level of Alertness: Awake, talking NEWMAN's with Equal Strength: Yes Pain: No Nausea or Vomiting: No CV Function & Hydration Stable: Yes Airway Device: n/a Oxygen Delivery: Simple Mask Lungs: Clear to Auscultation, Normal Air Movement Dermatome Level: Full Sensation PACU Phase 2 Assessment Complications: No Follow up Care: N/A Patient Instructions Provided: N/A Ugo Carlson MD Dec 24, 2016 15:17
[2016-12-24] MEDS: HYDROcodone-APAP 5-325 mg Tablet PO PRN ×2 (15:55→16:22)
--- NOTE | 2016-12-25 20:36 | OP ---
[address] [address] OPERATIVE REPORT PATIENT: CLARITA CHEATHAM : 1940 MR#: [id number] ADMIT: 12/24/2016 JOB ID: [id number] DATE OF SURGERY: 12/24/2016 PROCEDURE: Right-sided ureteroscopy, laser lithotripsy, right-sided double-J stent change and right-sided retrograde pyelogram. SURGEON: Destiny Amos MD. ANESTHESIA: General. PREOPERATIVE DIAGNOSIS(ES): Large volume of right renal calculi in proximal ureter and kidney. POSTOPERATIVE DIAGNOSIS(ES): Large volume of right renal calculi in proximal ureter and kidney. INDICATIONS: The patient is a 76-year-old woman who had a stent placed acutely with obstruction over one month previous with a large burden of stone in the right renal pelvis and proximal ureter. She underwent shock wave lithotripsy some weeks previous with stone well treated, returning to clinic showing a significant residual burden of stone and she was counseled about further treatment to attempt to alleviate the remainder of the stone. As she was stented already at the time due to the large volume of stone initially, we elected to proceed with shock wave lithotripsy, particularly given the so-so results of shock wave previously. PROCEDURE DETAIL: After appropriate informed consent was obtained, the patient brought to the operating room. She received IV antibiotics prior to onset of the procedure. SCDs were placed. Adequate general anesthesia induced. She was carefully placed in dorsal lithotomy position and all pressure points carefully padded. Cleaned, prepped, and draped in the usual sterile fashion. Rigid scope was introduced in the patient's bladder. Distal end of the right-sided ureteral stent was seen. There was some hematuria which was irrigated out. The stent itself had some light encrustation. Grasped the end of it, brought it to her meatus. We were unable to get the wire up through it due to encrustation. Thus, the wire was passed next to the stent, up into good position in the renal pelvis. Her residual stone was easily visible on fluoroscopy. Once we removed the double-J stent leaving the safety wire in place, we backloaded the safety wire through a dual-lumen catheter, placed a second wire, and then used a 15-Slovak outer diameter ureteral access sheath to slide up to near the patient's ureteropelvic junction. That wire was removed along with the inner core of the access sheath and we left the 2nd wire as a safety wire throughout the course of the case. The retrograde pyelogram was performed. Once we had switched over to the digital ureteroscope, we were able to map out the collecting system very well. The remaining stone burden was in the most disadvantageous, most dependent calyx, which was actually quite difficult to reach given the anatomy. Ultimately, we were able to get the 273 laser fiber onto the stone and manipulate it into a slightly more advantageous position, although it was quite difficult. Case took well over 1 hour of lasering and the manipulation of stone to treat as best as possible and the condition of patient's stone. The overwhelming majority of the stone was broken up into small pieces of 1-2 mm in size. Assembly Machine Operator pieces were removed from the patient's collecting system and handed off for stone analysis. A good portion of the stone was really quite hard, suspected to be calcium oxalate monohydrate. Towards the end of the procedure, the collecting system became enough bloody that visualization was difficult. At termination of procedure we felt that the greatest burden on the stone had been removed. This was a quite dependent calyx which was difficult to reach. We elected, with the decreasing visibility, to go ahead and terminate the procedure, replace the double-J stent and leave it for a good number of weeks prior to removing it. She tolerated the procedure very well. Last retrograde pyelogram revealed no extravasation at all. We removed the ureteroscope, cleared the ureter, removed the access sheath and then backloaded the safety wire through cystoscope and replaced her 6-Slovak double-J stent over the wire under fluoroscopic and direct visual guidance into good position with a curl in the renal pelvis and a curl in the patient's bladder. Bladder itself was irrigated out copiously with saline to remove any clots. Her bladder was drained. The scope was removed. The string was left off in anticipation of leaving this for at least 3-4 weeks. Patient tolerated the procedure well. Was awakened, taken in stable condition to the postanesthesia care unit.
[2016-12-29 16:09] LABS: Stone Color Tan (.)
== END | disposition home or self-care (01) ==
LOC: SAS 10:21
PROVIDERS: ATTEND Urology
DX: N20.0 Calculus of kidney (principal); M19.90 Unspecified osteoarthritis, unspecified site; F17.210 Nicotine dependence, cigarettes, uncomplicated; Z79.52 Long term (current) use of systemic steroids
CPT/HCPCS: 52356; 74420; 81000; 82360; 87086; C2617; J1100; J2370; J2405; J2704; J2765; J3010; J7120; Q9967